=== PATIENT | female | born 1955 | race Caucasian/White ===

== ENCOUNTER 2024-02-10 13:04 | Observation (INO) | payer BC ==
[~2024-02-10] VITALS: Ht 167.6 cm; Wt 78.5 kg
[2024-02-10] MEDS ORDERED: LIDOcaine 1% 30ml preserv. free vial ONE (13:16)
[2024-02-10] MEDS ORDERED: iohexol 350 MG/ML 50ML vial IV ONE (13:16)
[2024-02-10] MEDS ORDERED: midazolam 1 mg/ML 2ml injection ONE (13:16)
[2024-02-10] MEDS ORDERED: fentaNYL/PF 50MCG/1 ML 2ML syringe ONE (13:16)
[2024-02-10] MEDS ORDERED: iohexol 350MG/ML 100ml bottle IV ONE (13:17)
[2024-02-10 13:24] LABS: BASOPHILS # (AUTO) 0.1 X10'3 (0-0.2); BASOPHILS % (AUTO) 1.1 % (0-1); EOSINOPHILS # (AUTO) 0.2 X10'3 (0-0.9); EOSINOPHILS % (AUTO) 3.1 % (0-6); HEMATOCRIT 48.3 % (35.0-45.0); HEMOGLOBIN 16.3 g/dl (12.0-16.0); LYMPHOCYTES # (AUTO) 2.2 X10'3 (1.1-4.8); LYMPHOCYTES % (AUTO) 33.6 % (21-51); MEAN CORPUSCULAR HGB CONC 33.7 g/dL (33.0-36.5); MEAN CORPUSCULAR VOLUME 89.1 FL (78-98); MEAN PLATELET VOLUME 9.6 FL (7.4-10.4); MONOCYTES # (AUTO) 0.5 X10'3 (0-0.9); MONOCYTES % (AUTO) 7.3 % (2-12); NEUTROPHILS # (AUTO) 3.6 X10'3 (1.8-7.7); NEUTROPHILS % (AUTO) 54.9 % (42-75); PLATELET COUNT 162 X10'3 (140-440); RED BLOOD COUNT 5.42 X10'6 (4.20-5.60); RED CELL DISTRIBUTION WIDTH 14.9 % (11.5-14.5); WHITE BLOOD COUNT 6.6 X10'3 (4.5-11.0)
[2024-02-10 13:42] LABS: ALBUMIN 3.5 G/DL (3.4-5.0); ANION GAP 9 (8-16); BLOOD UREA NITROGEN 12 MG/DL (7-18); BUN/CREATININE RATIO 17.1 (10.0-20.0); CALCIUM 8.9 MG/DL (8.5-10.1); CHLORIDE 106 MMOL/L (99-107); GLUCOSE 157 MG/DL (70-104); POTASSIUM 3.5 MMOL/L (3.5-5.1); PRO BRAIN NATRIURETIC PEPTIDE 427 PG/ML (0-125); SODIUM 142 MMOL/L (135-145); TOTAL CARBON DIOXIDE 27.3 MMOL/L (24-32); eCRCL 71 ML/MIN; eGFR 83 ML/MIN
[2024-02-10] MEDS: normal saline 1000ML IV soln IVB ONE (13:56)
[2024-02-10] MEDS: metoprolol tartrate 1mg/ml inj IV ONE ×2 (13:56)
[2024-02-10] MEDS: heparin 10,000 units/1 ML INJ IV ONE (13:58)
[2024-02-10] MEDS ORDERED: heparin 25,000 UNIT/250ml bag 250 ML IV PRN ×2 (14:00→14:04)
[2024-02-10] MEDS: ondansetron/PF 4mg/2ml inj IV ONE (14:03)
[2024-02-10] MEDS: nitroGLYCERIN 0.4mg/hour patch TD ONE (14:03)
[2024-02-10] MEDS: aspirin 325mg tablet PO ONE (14:03)
[2024-02-10] MEDS ORDERED: heparin 10,000 units/1 ML INJ IV PRN (14:20)
[2024-02-10] MEDS: metoprolol succinate 25mg (24-HOUR) SR. Tablet PO SCH (14:33)
[2024-02-10] MEDS: MESSAGE TO NURSING IV ONE (14:34)
[2024-02-10] MEDS ORDERED: METO-477 PO (14:41)
[2024-02-10] MEDS ORDERED: ATOR80TA PO (14:41)
[2024-02-10] MEDS ORDERED: CLOP75TA34 PO (14:41)
[2024-02-10] MEDS ORDERED: LOSA-415 PO (14:41)
[2024-02-10] MEDS ORDERED: potassium Cl 40MEQ/1/2NS 520ml 520 ML IV PRN (14:50)
[2024-02-10] MEDS ORDERED: magnesium sulf-water 4G/100mL 100 ML IV PRN (14:50)
[2024-02-10] MEDS ORDERED: magnesium sulf-water 2g/50mL 50 ML IV PRN (14:50)
[2024-02-10] MEDS ORDERED: magnesium Cl slow-release 64mg tablet PO PRN (14:50)
[2024-02-10] MEDS ORDERED: potassium Cl 20 mEq SR tablet PO PRN (14:50)
[2024-02-10] MEDS ORDERED: acetaminophen 325mg tablet PO PRN (14:50)
[2024-02-10] MEDS ORDERED: ondansetron/PF 4mg/2ml inj IV PRN (14:50)
[2024-02-10] MEDS: PERFLUTREN PROTEIN-A MICROSPHR (Optison) 0.22 MG/ML 3ML VIAL IV ONE (14:50)
[2024-02-10] MEDS: normal saline 1000ml 1,000 ML IV SCH (15:43)
[2024-02-10 16:01] LABS: MAGNESIUM 1.8 MG/DL (1.5-2.4)
[2024-02-10] MEDS: K and/or MAG REPLACEMENT MC SCH (20:00)
[2024-02-10 20:48] VITALS: BP 144/66; PULSE 72; RESP 16; TEMP 96.4; O2SAT 93
[2024-02-10 20:50] VITALS: RESP 16; O2SAT 93
[2024-02-10] MEDS ORDERED: temazepam 15mg capsule PO PRN (21:00)
[2024-02-10] MEDS: heparin, porcine 5000 units/ml vial SQ SCH (21:00)
[2024-02-10] MEDS ORDERED: ASPI-500 PO (22:17)
[2024-02-11 06:00] VITALS: BP 170/91; PULSE 80; RESP 16; TEMP 98.3; O2SAT 92
[2024-02-11 07:19] LABS: BASOPHILS # (AUTO) 0.1 X10'3 (0-0.2); BASOPHILS % (AUTO) 0.8 % (0-1); EOSINOPHILS # (AUTO) 0.2 X10'3 (0-0.9); EOSINOPHILS % (AUTO) 2.1 % (0-6); HEMATOCRIT 42.7 % (35.0-45.0); HEMOGLOBIN 14.2 g/dl (12.0-16.0); LYMPHOCYTES # (AUTO) 2.5 X10'3 (1.1-4.8); LYMPHOCYTES % (AUTO) 31.6 % (21-51); MEAN CORPUSCULAR HEMOGLOBIN 29.8 PG (27.0-31.0); MEAN CORPUSCULAR HGB CONC 33.2 g/dL (33.0-36.5); MEAN CORPUSCULAR VOLUME 89.8 FL (78-98); MEAN PLATELET VOLUME 9.9 FL (7.4-10.4); MONOCYTES # (AUTO) 0.5 X10'3 (0-0.9); MONOCYTES % (AUTO) 6.9 % (2-12); NEUTROPHILS # (AUTO) 4.6 X10'3 (1.8-7.7); NEUTROPHILS % (AUTO) 58.6 % (42-75); PLATELET COUNT 143 X10'3 (140-440); RED BLOOD COUNT 4.76 X10'6 (4.20-5.60); WHITE BLOOD COUNT 7.9 X10'3 (4.5-11.0)
[2024-02-11 07:25] LABS: ANION GAP 7 (8-16); BLOOD UREA NITROGEN 10 MG/DL (7-18); BUN/CREATININE RATIO 20.8 (10.0-20.0); CALCIUM 8.4 MG/DL (8.5-10.1); CHLORIDE 108 MMOL/L (99-107); CREATININE 0.48 MG/DL (0.40-0.90); GLUCOSE 92 MG/DL (70-104); MAGNESIUM 1.8 MG/DL (1.5-2.4); POTASSIUM 3.3 MMOL/L (3.5-5.1); SODIUM 142 MMOL/L (135-145); TOTAL CARBON DIOXIDE 26.9 MMOL/L (24-32); eCRCL 104 ML/MIN; eGFR > 90 ML/MIN
[2024-02-11] MEDS: potassium Cl 20 mEq SR tablet PO PRN (07:39)
[2024-02-11] MEDS: aspirin 81mg, enteric-coated 1 TAB TABLET.DR PO SCH (09:53)
[2024-02-11] MEDS: clopidogrel 75mg tablet PO SCH (09:53)
[2024-02-11] MEDS: losartan 25mg tablet PO SCH (09:53)
[2024-02-11 10:00] VITALS: BP 197/103; PULSE 88; RESP 14; TEMP 98.3; O2SAT 94
[2024-02-11] MEDS ORDERED: NOR5T PO (12:10)
[2024-02-11 12:31] VITALS: BP_SYST 190; PULSE 90
[2024-02-11] MEDS: amLODIPine 5mg tablet PO ONE (12:31)
[2024-02-11] MEDS ORDERED: metoprolol tartrate 50mg tablet PO SCH (20:00)
[2024-02-12] MEDS ORDERED: atorvastatin 20mg tablet PO SCH (08:00)
== END 2024-02-11 14:45 | disposition home or self-care (01) ==
LOC: ER 13:05 → ED HOLD 14:51 → ORTHO 4S 20:10
PROVIDERS: ADMIT Internal Medicine; ATTEND Internal Medicine
DX: R07.89 Other chest pain (principal); I25.10 Atherosclerotic heart disease of native coronary artery without angina pectoris; I10 Essential (primary) hypertension; I25.2 Old myocardial infarction; F17.210 Nicotine dependence, cigarettes, uncomplicated; Z79.899 Other long term (current) drug therapy
CPT/HCPCS: 36415; 71045; 80048; 83735; 83880; 84484; 85025; 85730; 87081; 93005; 93306; 96361; 96372; 96374; 96375; 99291; G0378; J1644; J2250; J2405; J3010; J3490; J7030; Q9967; A6258

== ENCOUNTER 2025-05-21 13:18 | Inpatient (IN) | payer BC, MEDICAID ==
[~2025-05-21] VITALS: Ht 172.7 cm; Wt 74.3 kg
[~2025-05-21 13:18] MED LIST: ASPI-500 PO; ATOR-429 GT; CLOP75TA34 PO; LOSA-415 PO; METO-477 PO; NOR5T PO
[2025-05-21] MEDS: normal saline 500ml IV soln 500 ML IV SCH (14:45)
--- NOTE | 2025-05-21 15:04 | RADIOLOGY REPORT ---
CHEST RADIOGRAPH Indication: SEPSIS Technique: Single frontal view of the chest was obtained COMPARISON: DI CHEST,SINGLE VIEW on DOS: 02/10/24 FINDINGS: Lines and Tubes: None Lungs: Clear Pleura: No effusion. No pneumothorax. Cardiomediastinal contours: Unremarkable Bones: Unremarkable IMPRESSION: 1. No acute disease.
--- NOTE | 2025-05-21 15:18 | ELECTROCARDIOGRAPH REPORT ---
[facility] Test Date: 2025-05-21 Test Time: 15:16:09 Pat Name: SHANTAL TOWNSEND Department: [facility] Patient ID: [id number] Room: ORTHO [facility] Gender: F Compensation Specialist: : [id number] Requested By: MILE JENSEN Order Number: [id number] Reading MD: Dr. Randall Maza Measurements Intervals [place] Rate: 110 P: 60 FL: 167 QRS: 50 QRSD: 109 T: 118 QT: 349 QTc: 473 Interpretive Statements Sinus tachycardia Probable inferior infarct, acute Anterior infarct, old Lateral leads are also involved Electronically Signed On 05-26-2025 7:50:[address] Randall Maza Please click the below link to view image of tracing.
--- NOTE | 2025-05-21 15:40 | Physician Documentation ---
History of Present Illness General Chief Complaint: Sore Throat Stated Complaint: DIFFICULTY SWALLOWING Time Seen by MD: 14:07 Primary Medical Doctor: DR ALON MCBRIDE History of Present Illness Initial Comments 70-year-old female brought to the emergency department by family for evaluation and management of dehydration with likely UTI and failure to thrive. Family member reports that patient has had increased difficulty eating for the last couple of weeks with significant change in the last 48 hours. Has known history of CVA leaving her with with left upper and lower extremity deficits. No reported chest pain, headache, nausea or vomiting. Patient without change in her orientation, speech or right and lower extremity functional use. Patient is a normally seen at [facility] yet had an unpleasant hospital stay and subsequently has presenting to [facility] Emergency Department. She was able to tolerate some yogurt this morning without nausea or vomiting or cough. Yesterday was able to have applesauce with her meds yet no further appetite. Medication Reconciliation Allergies: Coded Allergies: Influenza Virus Vaccines (Unverified Allergy, Unknown, 02/10/24) Scheduled Atorvastatin Calcium* (Lipitor*), 1 TAB PO DAILY, (Reported) Baclofen (Baclofen), 1 TAB PO BID, (Reported) Docusate Sodium (Docusate Sodium), 1 CAP PO Q12H, (Reported) Fluticasone Propionate (Flonase), 2 SPRAYS BOTHNARES DAILY, (Reported) Loratadine (Loratadine), 1 TAB PO DAILY, (Reported) Metoprolol Tartrate (Lopressor*), 1 TAB PO BID, (Reported) Omeprazole (Omeprazole), 1 CAP PO DAILY, (Reported) Valsartan (Valsartan), 1 TAB PO DAILY, (Reported) Discontinued Medications Amlodipine Besylate (Amlodipine Besylate), 1 TAB PO DAILY Discontinued Reason: patient no longer taking Aspirin (Adult Low Dose Aspirin EC), 1 TAB PO DAILY, (Reported) Discontinued Reason: patient no longer taking Clopidogrel Bisulfate (Clopidogrel), 1 TAB PO DAILY, (Reported) Discontinued Reason: patient no longer taking Losartan Potassium* (Cozaar*), 1 TAB PO DAILY, (Reported) Discontinued Reason: patient no longer taking Past Medical History Past Medical History: Hypertension, Myocardial Infarction Review of Systems Constitutional: Denies: fever, chills HENT: Reports: throat pain; Denies: ear pain, nasal discharge RESP: Denies: short of breath, cough GI: Denies: abdominal pain, nausea : Reports: frequency Neuro: Denies: headache, seizures, dizziness, weakness, numbness, tingling Psych: Reports: anxiety Physical Exam Physical Exam Vital Signs: RN Vital Signs have been reviewed: Yes, Temperature: 98.2, Source: Temporal, Heart Rate: 68, Respiratory Rate: 18, BP: 107/64, Pulse Oximetry: 93, Weight: 62.000 Oxygen Flow Rate: 0 General Appearance: alert, WD/WN, mild distress Head: normal inspection Face: normal inspection Pupils/EOM/Fundus: PERRLA Ear: auricle normal Nose: normal inspection Oropharynx: normal inspection, dry muscous membranes; No: red, exudate, white plaques, tonsillar hypertrophy Neck: non-tender Respiratory: no respiratory distress Chest: no accessory muscle use Cardiovascular: normal peripheral pulses Gastrointestinal: non-tender Extremities: no edema, no calf tenderness Neurologic: oriented x4 Motor / Sensory: weak motor strength LUE, weak motor strength LLE Psychiatric: anxiety Skin: normal color Progress Results/Orders Results/Orders Orders - MILE JENSEN PAC Culture Blood (05/21/25 14:44) Chest,Single View (05/21/25 14:44) Straight Cath For Urine Sample (05/21/25 14:44) Page Hospitalist (05/21/25 16:48) Fill Out Med Reconciliation (05/21/25 16:48) Completed Orders - MILE JENSEN PAC Electrocardiogram (05/21/25 14:44) Cbc/Diff (05/21/25 14:44) MG (05/21/25 14:44) Chest,Single View (05/21/25 14:44) Hcg, Ur Ql (05/21/25 14:44) Procalcitonin (05/21/25 14:44) BMP (05/21/25 14:44) Lacticsepsis (05/21/25 14:44) Normal Saline 500ml Iv Soln (Sodium Chlo (05/21/25 14:45) Ua W/Microscopic, Cult If Ind (05/22/25 08:10) Vital Signs 05/21/25 05/21/25 13:37 17:00 Temp 98.2 Pulse 68 87 Resp 18 14 B/P (MAP) 107/64 110/89 (96) Pulse Ox 93 93 O2 Flow Rate 0 0 Laboratory Tests Test 05/21/25 15:57 White Blood Count 5.6 Red Blood Count 5.46 Hemoglobin 16.8 H Hematocrit 50.2 H Mean Corpuscular Volume 91.9 Mean Corpuscular Hemoglobin 30.7 Mean Corpuscular Hemoglobin Concent 33.4 Red Cell Distribution Width 15.5 H Platelet Count 170 Mean Platelet Volume 9.3 Neutrophils (%) (Auto) 76.3 H Lymphocytes (%) (Auto) 14.3 L Monocytes (%) (Auto) 8.4 Eosinophils (%) (Auto) 0.2 Basophils (%) (Auto) 0.8 Neutrophils # (Auto) 4.2 Lymphocytes # (Auto) 0.8 L Monocytes # (Auto) 0.5 Eosinophils # (Auto) 0.0 Basophils # (Auto) 0.0 CBC Comment Sodium Level 143 Potassium Level 3.4 L Chloride Level 100 Carbon Dioxide Level 31.0 Anion Gap 12 Blood Urea Nitrogen 26 H Creatinine 0.70 Estimated GFR/1.73 m2 82 BUN/Creatinine Ratio 37.1 H Glucose Level 87 Lactic Acid Level 1.3 Calcium Level 9.2 Magnesium Level 1.6 Albumin 2.9 L Procalcitonin 0.05 Chemistry Comments Microbiology Date/Time Source Procedure Growth Status 05/21/25 16:48 Blood Arm Right Blood Culture - Preliminary NEGATIVE (LESS THAN 24 HOURS) Resulted Medical Decision Making Additional information obtaine: family Findings 70-year-old elderly female with progressive weakness that may be infectious in etiology with presentation of failure to thrive. Emergency department we will include laboratory screening chest x-ray screening I would EKG. Patient any further workup and management. Decision time to admit was upon patient's beds johan evaluation. She is resting comfortably pending re-evaluation and hospitalist consultation. Patient may benefit from EGD, ENT evaluation speech pathology and hydration along with addressing underlying cause. We will hold on antibiotic therapy until urine is resulted. Sepsis initiation upon evaluated the patient the bedside. Patient remained stable and Normotensive. No resu scitated measures needed. Labs are indicative of dehydration general likely contributory to general weakness with or without UTI. Differential Diagnosis Differential diagnosis likely that of acute infectious etiology such as UTI with failure to thrive, failure to thrive secondary to chronic disease. Low suspicion for acute coronary syndrome and/or acute CVA. Do not suspect acute retropharyngeal etiologies such as tracheitis, epiglottitis or peritonsillar abscess. Sepsis labs placed upon presentation that patient's bedside. Gentle fluid hydration until further results obtained of screening labs. Chest x-ray without infiltrates, effusions or pneumothoraces. EKG normal rate and rhythm with evidence of old injury. Departure Disposition: ADMITTED INPATIENT Admitted to Inpatient Unit: to hospitalist Admission Level of Care: Med/Surg Impression: Primary Impression: General weakness Additional Impressions: Dysphagia Qualified Codes: R13.10 - Dysphagia, unspecified Failure to thrive in adult Referrals: NO PRIMARY CARE PROVIDER (PCP) Signature Scribe Signature: . Attestation: . MILE JENSEN PAC May 21, 2025 15:40
[2025-05-21 16:30] LABS: CREATININE 0.70 MG/DL (0.40-0.90); MEAN PLATELET VOLUME 9.3 FL (7.4-10.4); RED CELL DISTRIBUTION WIDTH 15.5 % (11.5-14.5); TOTAL CARBON DIOXIDE 31.0 MMOL/L (24-32); eCRCL 72 ML/MIN; eGFR 82 ML/MIN
[2025-05-21] MEDS ORDERED: magnesium sulf-water 2g/50mL 50 ML IV PRN (18:20)
[2025-05-21] MEDS ORDERED: morphine 4 MG/ML inj SYRINge IV PRN (18:20)
[2025-05-21] MEDS ORDERED: mag hydrox/Alum hydrox/simeth 30ml oral suspension PO PRN (18:20)
[2025-05-21] MEDS ORDERED: ondansetron/PF 4mg/2ml inj IV PRN (18:20)
[2025-05-21] MEDS ORDERED: potassium Cl 20 mEq SR tablet PO PRN ×2 (18:20)
[2025-05-21] MEDS ORDERED: magnesium hydroxide 30ml (MOM) UD suspension PO PRN (18:20)
[2025-05-21] MEDS ORDERED: HYDROcodone/acetaminophen 10/325mg tab PO PRN (18:20)
[2025-05-21] MEDS ORDERED: magnesium sulf-water 4G/100mL 100 ML IV PRN (18:20)
[2025-05-21] MEDS ORDERED: magnesium Cl slow-release 64mg tablet PO PRN (18:20)
[2025-05-21] MEDS: PERFLUTREN PROTEIN-A MICROSPHR (Optison) 0.22 MG/ML 3ML VIAL IV ONE (18:34)
--- NOTE | 2025-05-21 18:45 | HISTORY AND PHYSICAL-Residence ---
History & Physical Providers to CC Resident Creating Document: DAVID HUSSEIN, GUICHO ~ History of Present Illness Primary Medical Doctor: DR ALON MCBRIDE Reason for Admit\Complaint: Acute deconditioning, possible UTI, failure to thrive History of Present Illness 70-year-old female presented to the ER with past medical history of hypertension, CVA with left hemiparesis, coronary artery disease status post stenting presented to the ER by family for evaluation and management of dehydration with likely UTI and failure to thrive, ambulation difficulty. She reported loss of appetite, dysphagia, vomiting for the past couple of days. that patient has had increased difficulty eating for the last couple of weeks with significant change in the last 48 hours. Has known history of CVA leaving her with with left upper and lower extremity deficits. She denied chest pain, headache, nausea, vomiting , no recent change in orientation, speech, weakness of limbs. Patient is a normally seen at [facility] yet had an unpleasant hospital stay and subsequently has presenting to [facility] Emergency Department. She was able to tolerate some yogurt this morning without nausea or vomiting or cough. Allergies: Coded Allergies: Influenza Virus Vaccines (Unverified Allergy, Unknown, 02/10/24) Home Medications Home Medications Active Amlodipine Besylate 5 Mg Tablet 1 Tab PO DAILY 30 Days Reported Adult Low Dose Aspirin EC (Aspirin) 81 Mg Tablet. 1 Tab PO DAILY Clopidogrel (Clopidogrel Bisulfate) 75 Mg Tablet 1 Tab PO DAILY 30 Days Do not stop medication unless instructed by prescriber. Cozaar* (Losartan Potassium) 25 Mg Tablet 1 Tab PO DAILY 30 Days Lipitor* (Atorvastatin Calcium) 80 Mg Tablet 1 Tab PO DAILY 30 Days Lopressor* (Metoprolol Tartrate) 100 Mg Tab 1 Tab PO BID Past Medical History Past Medical History Hypertension Myocardial infarction Past Surgical History Surgical History Comment Cholecystectomy CAD with stent placement Family History Family History: Patient reports no known family medical history. Past Social History Social History Comment Smokes 5 cigarettes a day Denied alcohol, drug intake Smoking: Cigarettes, Less than 1 pack/day Alcohol Use: None Drug Use: None ROS All Other Systems: Reviewed and Negative ROS Reviewed in full and negative except positive pertinent as in HPI Exam Vitals: Vital Signs Date Time Temp Pulse Resp B/P (MAP) Pulse Ox O2 Delivery O2 Flow Rate FiO2 05/21/25 17:00 87 14 110/89 (96) 93 0 05/21/25 13:37 98.2 General: General: Alert, Awake, oriented to time place person. Not in acute distress HEENT: Normocephalic , atraumatic pupils round reactive to light and accommodation, extraocular movements intact, sclera anicteric, conjunctiva pinkish, moist oral mucosa, no rash or ulcers. Neck: Supple, no JVD, trachea midline, no lymphadenopathy. Chest: Clear to auscultation, no wheezes crackles or rhonchi. Cardiovascular: Regular rate rhythm. Ejection systolic murmur 2-3/6 on aortic area and pulmonary area. No rub/gallop Abdomen: Soft nontender, no organomegaly. No rebound tenderness, no guarding no rigidity Extremities: No cyanosis, clubbing or edema. Central Nervous System: Higher mental functions: Intact Motor system: Tone is normal on right upper extremity and lower extremity. Hypotonia in left upper extremity lower extremity. Power is intact on right side and reduced on left side. Reflexes plantars are extensor on the left side and flexor on right side. Deep tendon reflexes are intact Sensory system: Intact Cerebellum: Intact Meningeal signs: No Musculoskeletal: No joint swelling or deformities noted. Skin: No rash or ulcers noted. Diagnostic Data Last Recorded Lab Results: 05/21/25 1557 05/21/25 1557 Advance Care Planning Advanced Care plannin - 30 Minutes Additional Plan Failure to thrive Acute deconditioning secondary to pre-existing CVA and possible UTI Dysphagia Ambulation difficulty Vitals are stable. CBC, Procalcitonin, lactic acid is normal. Started on ceftriaxone for presumptive UTI as urinalysis is still pending On IV normal saline at the rate of 100 mL/hour PT is ordered and follow up with his recommendation. Consult GI after swallow test Hypertension On home medications of Losartan 25 mg p.o. daily, metoprolol 100 mg p.o. daily, amlodipine 5 mg p.o. daily and we will continue after medication reconciliation. Blood pressure is stable Coronary artery disease CVA with a left hemiplegia We will continue aspirin 81 mg, clopidogrel 75 mg p.o. daily, atorvastatin 80 mg p.o. daily Nicotine use A nicotine patch if needed Mild protein malnutrition Hypoalbuminemia Serum albumin 2.9 On NPO now Code: Full code Diet: NPO till swallow test and then heart healthy diet PT: Ordered Prognosis: Guarded [facility] resident, PGY 2 Date of Service: May 21, 2025 Billing Provider: MANJIT SMALL MD Common Visit Codes: 72201-TZWZEAO INP/OBS CARE (HIGH) Secondary Visit Codes: 97734-GLHFLTYQ CARE PLAN 30 MINUTES DAVID HUSSEIN, RES May 21, 2025 18:45 MANJIT SMALL MD Jun 05, 2025 07:27
[2025-05-21] MEDS: normal saline 1000ml 1,000 ML IV SCH (18:52)
[2025-05-21] MEDS: CefTRIAXone/D5W-Rocephin 1gm 50 ML IV ONE (18:52)
[2025-05-21] MEDS: K and/or MAG REPLACEMENT MC SCH (20:00)
[2025-05-21] MEDS: docusate sod 100mg capsule PO SCH (20:00)
[2025-05-21] MEDS: fluticasone nasal spray 16GM bottle NS SCH (20:37)
[2025-05-21] MEDS: potassium Cl 40MEQ/1/2NS 520ml 520 ML IV PRN (20:38)
[2025-05-21] MEDS ORDERED: LORA10TA7 GT (22:41)
[2025-05-21] MEDS ORDERED: BACL10TA2 GT (22:42)
[2025-05-21] MEDS ORDERED: DOCU100C38 PO (22:44)
[2025-05-21] MEDS ORDERED: OMEP20CA15 GT (22:45)
[2025-05-21 23:04] VITALS: BP 122/56; PULSE 100; RESP 18; TEMP 97.9; O2SAT 95
[2025-05-22] MEDS: morphine 4 MG/ML inj SYRINge IV PRN (00:08)
[2025-05-22] MEDS ORDERED: FLUT16SP2 BOTHNARES (00:29)
[2025-05-22] MEDS ORDERED: VALS40TA11 PO (00:29)
[2025-05-22 05:32] LABS: MEAN PLATELET VOLUME 9.8 FL (7.4-10.4); RED CELL DISTRIBUTION WIDTH 15.4 % (11.5-14.5)
[2025-05-22 06:00] VITALS: BP 138/57; PULSE 108; RESP 14; TEMP 96.6; O2SAT 95
[2025-05-22] MEDS: CefTRIAXone/D5W-Rocephin 1gm 50 ML IV SCH (08:28)
[2025-05-22 09:22] LABS: URINE HCG NEGATIVE (NEG)
[2025-05-22 09:23] LABS: CREATININE 0.41 MG/DL (0.40-0.90); TOTAL CARBON DIOXIDE 27.4 MMOL/L (24-32); eCRCL 123 ML/MIN; eGFR > 90 ML/MIN
[2025-05-22 09:28] LABS: UA COLLECTION TYPE NON-SPECIFIED
[2025-05-22 09:29] LABS: OCCULT BLOOD,URINE MODERATE (Neg)
[2025-05-22 09:30] LABS: LEUKOCYTE ESTERASE ,URINE MODERATE (Neg); NITRITES, URINE POSITIVE (Neg)
[2025-05-22 09:33] LABS: RENAL CELLS, URINE FEW /HPF; SQUAMOUS EPITHELIAL CELL,UR FEW /LPF (FEW)
[2025-05-22 10:00] VITALS: BP 135/62; PULSE 109; RESP 18; TEMP 97.7; O2SAT 96
[2025-05-22 10:03] VITALS: RESP 16; O2SAT 96
--- NOTE | 2025-05-22 16:06 | CARDIOLOGY REPORT ---
APPROVED REPORT EXAM: Comprehensive 2D, Doppler, and color-flow Echocardiogram. Patient Location: [facility] Heart Rate: 109 bpm Rhythm: Tachycardia Indications CVA/TIA HTN 2/6 SYSTOLIC EJECTION MURMUR ARM REST BUILDER: Shahid UMANA MD PRIOR ECHOCARDIOGRAM: 02/10/2024 [facility] LVEF 60%; m CLVH; m AV SCLEROSIS; m MAC; 2D Dimensions RVDd 2.9 cm IVSd 1.1 (0.7-1.1cm) LVDd 3.5 cm PWd 1.3 (0.7-1.1cm) IVSs 1.4 (0.8-1.2cm) LVDs 2.4 (2.5-4.0cm) PWs 1.6 (0.8-1.2cm) LVOT Diameter 1.86 (1.8-2.4cm) LVEF(%) 61.3 (>50%) FS (%) 32.1 % SV 31.1 ml CO 3.4 L/min M-Mode Dimensions Left Atrium(MM) 3.55 (2.5-4.0cm) Aortic Root 3.11 (2.2-3.7cm) Aortic Cusp Exc 1.65 (1.5-2.0cm) Aortic Valve AoV Peak Dougie. 164.2 cm/s AoV VTI 23.5 cm AO Peak GR. 10.8 mmHg AO Mean GR. 6 mmHg LVOT VTI 18.23 cm LVOT Peak Dougie. 126.0 cm/s CLAUDIA(VTI)/BSA 2.11 cm2/m2 CLAUDIA (VTI) 2.11 cm2 AV DI 0.77 % Mitral Valve MV E Velocity 70.8 cm/s MV Peak Gr. 11 mmHg MV A Velocity 145.6 cm/s MV PHT 32 ms E/A Ratio 0.5 MVA (PHT) 6.88 cm2 MV VMax 165.0 cm/s LEFT VENTRICLE Normal LV size and function. Mild concentric hypertrophy. Overall LVEF is 60%. RIGHT VENTRICLE RV is normal size and function. ATRIA The left atrium size is normal. The right atrium size is normal. AORTIC VALVE Trileaflet AV appears mildly sclerotic without stenosis. No insufficiency. MITRAL VALVE Mild mitral annular calcification without stenosis. Trace insufficiency. TRICUSPID VALVE TV appears structurally normal without regurgitation. PULMONIC VALVE Pulmonic valve is not well visualized. GREAT VESSELS The aortic root is normal in size. The IVC is normal in size and collapses >50% with inspiration. PERICARDIUM Normal pericardium. No effusion. Other Information Study Quality: Fair Technically limited study due to Conclusion Overall LVEF is 60%. Normal LV size and function. Mild concentric hypertrophy. RV is normal size and function. Trileaflet AV appears mildly sclerotic without stenosis. No insufficiency. Mild mitral annular calcification without stenosis. Trace insufficiency. TV appears structurally normal without regurgitation. Normal pericardium. No effusion.
[2025-05-22] MEDS ORDERED: magnesium hydroxide 30ml (MOM) UD suspension CORPAK PRN (16:45)
[2025-05-22] MEDS ORDERED: HYDROcodone/acetaminophen 7.5MG/325MG per 15ml UD CUP CORPAK PRN (16:46)
[2025-05-22] MEDS ORDERED: POTASSIUM CHLORIDE 20 MEQ/15 ML oral solution CORPAK PRN ×2 (16:47)
[2025-05-22] MEDS ORDERED: mag hydrox/Alum hydrox/simeth 30ml oral suspension CORPAK PRN (16:48)
[2025-05-22] MEDS ORDERED: acetaminophen 325mg/10.15ml oral unit dose solution CORPAK PRN ×2 (16:48→16:49)
--- NOTE | 2025-05-22 17:39 | PROGRESS NOTE- Residence ---
Progress Note - Resident Providers to CC Resident Creating Document: ROBERTO WILKS RES ~ Antibiotic Timeout Antibiotic Ordered?: Yes Subjective Patient was seen and examined at bedside, she claims of having a stroke in October 2024, was at [facility] for a few weeks. Patient had an NG-tube placed at [facility] which was removed following speech therapy evaluation. Patient was discharged on follow up with speech therapy at home. However due to insurance issues patient claims she was recommended outpatient speech therapy. However, patient had dysphagia since January 2025 which has been progressive with a associated pain extending from right post auricular area to jaw. Objective Vital Signs Date Time Temp Pulse Resp B/P (MAP) Pulse Ox O2 Delivery O2 Flow Rate FiO2 05/22/25 10:10 Room Air 0.0 05/22/25 10:03 16 96 05/22/25 10:00 97.7 109 135/62 (86) Result Diagram: 05/22/25 0414 05/22/25 0828 General: Alert, Awake, oriented to time place person. Not in acute distress HEENT: Normocephalic , atraumatic pupils round reactive to light and accommodation, extraocular movements intact, sclera anicteric, conjunctiva pinkish, moist oral mucosa, no rash or ulcers. Neck: Supple, no JVD, trachea midline, no lymphadenopathy. Chest: Clear to auscultation, no wheezes crackles or rhonchi. Cardiovascular: Regular rate rhythm. Ejection systolic murmur 2-3/6 on aortic area and pulmonary area. No rub/gallop Abdomen: Soft nontender, no organomegaly. No rebound tenderness, no guarding no rigidity Extremities: No cyanosis, clubbing or edema. Central Nervous System: Higher mental functions: Intact Motor system: Tone is normal on right upper extremity and lower extremity. Hypotonia in left upper extremity lower extremity. Power is intact on right side and reduced on left side. Reflexes plantars are extensor on the left side and flexor on right side. Deep tendon reflexes are intact Sensory system: Intact Cerebellum: Intact Meningeal signs: No Musculoskeletal: No joint swelling or deformities noted. Skin: No rash or ulcers noted. Advance Care Planning Advanced Care plannin - 30 Minutes Plan Plan 1. Failure to thrive / Acute deconditioning Likely multifactorial, secondary to chronic neurologic deficits from prior CVA, poor oral intake due to dysphagia, and possible infection Currently appears malnourished with hypoalbuminemia (albumin 2.9 g/dL) Plan: Continue IV fluids (Normal saline at 100 mL/hr) for hydration Nutrition consult for nutritional optimization Continue close monitoring of intake/output and daily weights Clear liquid diet per speech therapy. PT and OT evaluation for mobility and strengthening Speech therapy recommended clear liquid diet, NG tube for enteral nutrition versus PEG tube Discussion regarding long-term feeding options (NGT vs PEG) with patient and family pending 2. Dysphagia- oropharyngeal dysphagia secondary to prior stroke Chronic but worsening since January, likely secondary to sequelae of prior CVA. Now with poor tolerance to solids; able to take only small amounts of yogurt. Plan: Maintain clear liquids per speech therapy GI consult for swallow evaluation and possible G-tube after discussion with the patient Continue aspiration precautions and upright positioning 3. Urinary tract infection (UTI) UA positive; urine culture pending Procalcitonin and lactic acid normal, no systemic inflammatory response Plan: Continue ceftriaxone (Rocephin) empirically pending culture results Adjust antibiotics based on culture and sensitivity Monitor temperature, WBC, and clinical response Encourage hydration 4. 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 Currently contributing to immobility and deconditioning. Plan: Continue aspirin 81 mg daily, clopidogrel 75 mg daily, and atorvastatin 80 mg daily PT and OT to assist with mobility and prevent contractures Fall precautions 5. Coronary artery disease s/p stenting Stable, no acute cardiac symptoms Plan: Continue aspirin, clopidogrel, and atorvastatin ( but pt iscurrently NPO) Monitor for chest pain or dyspnea Continue home antihypertensive medications 6. Hypertension Blood pressure stable on current regimen Plan: Continue losartan 25 mg daily, metoprolol 100 mg daily, and amlodipine 5 mg daily Monitor blood pressure and adjust as needed 7. Mild protein-calorie malnutrition / Hypoalbuminemia (albumin 2.9 g/dL) Secondary to poor intake and dysphagia Plan: Nutrition consult Replete electrolytes as needed Monitor albumin and prealbumin levels 8. Nicotine use Continue nicotine patch as needed 9. Social and Disposition Lives with , granddaughter, and brother. Discussed at length with patient; she currently declines NGT placement and prefers to discuss with PCP first. Follow-up with PCP, speech therapy, and possibly GI. Code Status: I spent a total of 17 minutes on reviewing various resuscitative measures with the patient at the time of admission. The patient has decided on a full code status. Nutrition: Clear liquid diet PT: Ordered Prognosis: Guarded Roberto Wilks MD Internal Medicine Resident, PGY-2 Date of Service: May 22, 2025 Billing Provider: MANJIT SMALL MD Common Visit Codes: 43519-[id number] INP/OBS CARE(HIGH) ROBERTO WILKS, RES May 22, 2025 17:39 MANJIT SMALL MD Jun 05, 2025 07:27
[2025-05-22 18:00] VITALS: BP 138/63; PULSE 108; RESP 16; TEMP 97.8; O2SAT 96
[2025-05-22] MEDS: docusate sodium 100mg/10ml UD cup CORPAK SCH (19:36)
[2025-05-22 22:00] VITALS: BP 144/69; PULSE 66; RESP 14; TEMP 96.8; O2SAT 94
[2025-05-23 06:00] VITALS: BP 135/74; PULSE 67; RESP 14; TEMP 97.6; O2SAT 95
[2025-05-23 06:07] LABS: MEAN PLATELET VOLUME 8.8 FL (7.4-10.4); RED CELL DISTRIBUTION WIDTH 15.5 % (11.5-14.5)
[2025-05-23 06:18] LABS: CREATININE 0.30 MG/DL (0.40-0.90); TOTAL CARBON DIOXIDE 26.1 MMOL/L (24-32); eCRCL 168 ML/MIN; eGFR > 90 ML/MIN
[2025-05-23] MEDS ORDERED: Potassium Cl inj 40 MEQ in sodium chloride 0.45% 500ml 500 ML IV ONE (07:15)
[2025-05-23 08:20] VITALS: BP 160/71; PULSE 86
[2025-05-23] MEDS: lansoprazole 15mg solutab CORPAK SCH (08:21)
[2025-05-23] MEDS: potassium Cl 40MEQ/1/2NS 520ml 520 ML IV ONE (08:42)
[2025-05-23 10:00] VITALS: BP 134/78; PULSE 67; RESP 14; TEMP 97.3; O2SAT 100
[2025-05-23] MEDS ORDERED: Potassium Cl inj 40 MEQ in normal saline 500ml IV soln 500 ML IV ONE (12:20)
[2025-05-23] MEDS ORDERED: potassium Cl 40MEQ/1/2NS 520ml 520 ML IV ONE (12:44)
[2025-05-23] MEDS ORDERED: potassium Cl 20mEq/100mL bag 100 ML IV SCH (13:05)
[2025-05-23] MEDS: POTASSIUM CHLORIDE 20 MEQ/15 ML oral solution PO ONE ×2 (14:11→20:30)
[2025-05-23] MEDS ORDERED: acetaminophen 325mg/10.15ml oral unit dose solution PO PRN (15:15)
[2025-05-23] MEDS ORDERED: magnesium hydroxide 30ml (MOM) UD suspension PO PRN (15:15)
[2025-05-23] MEDS ORDERED: mag hydrox/Alum hydrox/simeth 30ml oral suspension PO PRN (15:15)
[2025-05-23] MEDS ORDERED: HYDROcodone/acetaminophen 7.5MG/325MG per 15ml UD CUP PO PRN (15:15)
[2025-05-23] MEDS ORDERED: POTASSIUM CHLORIDE 20 MEQ/15 ML oral solution PO PRN (15:15)
[2025-05-23] MEDS: magnesium sulf-water 4G/100mL 100 ML IV ONE (15:25)
--- NOTE | 2025-05-23 15:31 | PROGRESS NOTE- Residence ---
Progress Note - Resident Providers to CC Resident Creating Document: ROBERTO WILKS RES ~ Antibiotic Timeout Antibiotic Ordered?: No Subjective Patient was seen and examined at bedside, she tolerated p.o. medications over the past 24 hours. She denied having gagging reflex with p.o. medications. She also tolerated clear liquid diet and yogurt today in a.m.. Speech therapy evaluated and recommended advancing to pureed thick diet. Hence discussion regarding long-term feeding options (G-tube placement) is currently on hold. Objective Vital Signs Date Time Temp Pulse Resp B/P (MAP) Pulse Ox O2 Delivery O2 Flow Rate FiO2 05/23/25 08:29 86 05/23/25 08:20 160/71 (100) 05/23/25 08:00 Room Air 05/23/25 06:00 97.6 14 95 05/22/25 10:10 0.0 Result Diagram: 05/23/25 0541 05/23/25 0541 General:Alert, Awake, oriented to time place person. Not in acute distress HEENT:Normocephalic , atraumatic pupils round reactive to light and accommodation, extraocular movements intact, sclera anicteric, conjunctiva pinkish, moist oral mucosa, no rash or ulcers. Neck:Supple, no JVD, trachea midline, no lymphadenopathy. Chest:Clear to auscultation, no wheezes crackles or rhonchi. Cardiovascular:Regular rate rhythm. No murmus all over the precordium. No rub/gallop Abdomen:Soft nontender, no organomegaly. No rebound tenderness, no guarding no rigidity Extremities:No cyanosis, clubbing or edema. Central Nervous System: Higher mental functions: Intact Motor system: Tone is normal on right upper extremity and lower extremity. Hypotonia in left upper extremity lower extremity. Power is intact on right side and reduced on left side. Reflexes plantars are extensor on the left side and flexor on right side. Deep tendon reflexes are intact Sensory system: Intact Cerebellum: Intact Meningeal signs: No Musculoskeletal: No joint swelling or deformities noted. Skin:No rash or ulcers noted. Advance Care Planning Advanced Care plannin - 30 Minutes Assessment Assessment Guy is a 70 year old female with recent history of stroke in October 2024, was at [facility] for a few weeks. Patient had an NG-tube placed at [facility] which was removed following speech therapy evaluation. Patient was discharged on follow up with speech therapy at home. However due to insurance issues patient claims she was recommended outpatient speech therapy. Patient had dysphagia since January 2025 which has been progressive with a associated pain extending from right post auricular area to jaw. Plan Plan 1. Failure to thrive / Acute deconditioning Likely multifactorial, secondary to chronic neurologic deficits from prior CVA, poor oral intake due to dysphagia, and possible infection Currently appears malnourished with hypoalbuminemia (albumin 2.9 g/dL) Plan: Continue IV fluids (Normal saline at 100 mL/hr) for hydration Nutrition consult for nutritional optimization Continue close monitoring of intake/output and daily weights PT and OT evaluation for mobility and strengthening Initially, speech therapy recommended clear liquid diet on 05/22; speech therapy re-evaluated on 05/23 and recommended puree textures and thin liquids Hence discussion regarding long-term feeding options (NGT vs PEG) with patient and family is currently on hold 2. Dysphagia- oropharyngeal dysphagia secondary to prior stroke Chronic but worsening since January, likely secondary to sequelae of prior CVA. Now with poor tolerance to solids; able to take only small amounts of yogurt Plan: Initially, speech therapy recommended clear liquid diet on 05/22; speech therapy re-evaluated on 05/23 and recommended puree textures and thin liquids GI consult for swallow evaluation and possible G-tube currently on hold Continue aspiration precautions and upright positioning 3. Urinary tract infection (UTI) UA positive; urine culture negative until today Procalcitonin and lactic acid normal, no systemic inflammatory response Plan: Continue ceftriaxone (Rocephin) empirically; urine cultures negative until now Adjust antibiotics based on culture and sensitivity Monitor temperature, WBC, and clinical response Encourage hydration 4. 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 Currently contributing to immobility and deconditioning. Plan: Continue aspirin 81 mg daily, and atorvastatin 80 mg daily PT and OT to assist with mobility and prevent contractures Fall precautions 5. Coronary artery disease s/p stenting Stable, no acute cardiac symptoms Plan: Continue aspirin, and atorvastatin Monitor for chest pain or dyspnea Continue home antihypertensive medications 6. Hypertension Blood pressure stable on current regimen Plan: Continue valsartan 40 mg daily, metoprolol tartate 100 mg Bid Monitor blood pressure and adjust as needed 7. Mild protein-calorie malnutrition / Hypoalbuminemia (albumin 2.9 g/dL) Moderate Malnutrition Secondary to poor intake and dysphagia Plan: Nutrition consult Replete electrolytes as needed Monitor albumin and prealbumin levels 8. Nicotine use Continue nicotine patch as needed 9. Social and Disposition Lives with , granddaughter, and brother. Discussed at length with patient; she currently declines NGT and G tube placement . Speech therapy, daily Code Status: Full code Nutrition: Pureed diet PT: Ordered Prognosis: Guarded Had a deep conversation with Patient and patient's Jeremiah, explained in detail regarding the possible need for G-tube placement if patient fails speech therapy evaluation on a daily basis. Roberto Wilks MD Internal Medicine Resident, PGY-2 Date of Service: May 23, 2025 Billing Provider: MANJIT SMALL MD Common Visit Codes: [id number] INP/OBS CARE(HIGH) ROBERTO WILKS, RES May 23, 2025 15:31 MANJIT SMALL MD Jun 05, 2025 07:27
[2025-05-23 18:00] VITALS: BP 116/64; PULSE 71; RESP 16; TEMP 96.9; O2SAT 95
[2025-05-23] MEDS: docusate sodium 100mg/10ml UD cup PO SCH (20:00)
[2025-05-23 22:00] VITALS: BP 125/64; PULSE 57; RESP 14; TEMP 97.1; O2SAT 96
[2025-05-24 05:25] LABS: MEAN PLATELET VOLUME 9.1 FL (7.4-10.4); RED CELL DISTRIBUTION WIDTH 15.6 % (11.5-14.5)
[2025-05-24 06:00] VITALS: BP 137/71; PULSE 62; RESP 14; TEMP 96.2; O2SAT 94
[2025-05-24 06:00] LABS: CREATININE 0.30 MG/DL (0.40-0.90); TOTAL CARBON DIOXIDE 26.0 MMOL/L (24-32); eCRCL 174 ML/MIN; eGFR > 90 ML/MIN
[2025-05-24] MEDS: POTASSIUM CHLORIDE 20 MEQ/15 ML oral solution PO PRN (07:58)
[2025-05-24] MEDS: lansoprazole 15mg solutab PO SCH (07:58)
[2025-05-24 10:30] VITALS: BP 107/51; PULSE 50; RESP 12; TEMP 97.6; O2SAT 96
[2025-05-24] MEDS ORDERED: CEFD300C3 PO (13:41)
[2025-05-24] MEDS ORDERED: LACT1CAP26 PO (13:41)
--- NOTE | 2025-05-24 15:51 | DISCHARGE SUMMARY-Residence ---
Discharge Summary Providers to Resident Creating Document: ROBERTO BRUMFIELD, RES ~ Discharge Summary Admission Diagnosis: ACUTE DECONDITIONING, AMBULATION DIFFICULTY UTI, Hospital Course DATE OF ADMISSION: 05/21/2025 DATE OF DISCHARGE: 05/24/25 Discharge Diagnosis\Comment: 1. Failure to thrive / Acute deconditioning 2. Oropharyngeal Dysphagia secondary to prior stroke Chronic but worsening since January, likely secondary to sequelae of prior CVA 3. Urinary tract infection (UTI) 4. History of Cerebrovascular Accident with left hemiparesis 5. Coronary artery disease s/p stenting 6. Hypertension 7. Mild protein-calorie malnutrition / Hypoalbuminemia (albumin 2.9 g/dL) Moderate Malnutrition 8. Nicotine use 9. Social and Disposition Operations\Procedures: None Consultants: None Complications: None Condition on DC: Stable New Medications: Cefdinir* (Cefdinir*) 300 Mg Capsule 1 CAP PO Q12H for 5 Days, #10 CAP Lactobacillus Rhamnosus (Culturelle) 10 Billion Cell Capsule 1 CAP PO DAILY for 30 Days, #30 CAP 0 Refills Continued Medications: Atorvastatin Calcium* (Lipitor*) 80 Mg Tablet 1 TAB PO DAILY for 30 Days, #30 TAB Baclofen (Baclofen) 10 Mg Tablet 1 TAB PO BID for 30 Days, #90 TAB 0 Refills Docusate Sodium (Docusate Sodium) 100 Mg Capsule 1 CAP PO Q12H for constipation for 7 Days, #14 CAP 0 Refills Fluticasone Propionate (Flonase) 16 Gm [place].susp 2 SPRAYS BOTHNARES DAILY for 30 Days, #16 GM Loratadine (Loratadine) 10 Mg Tablet 1 TAB PO DAILY for allergy symptoms for 30 Days, #30 TAB 0 Refills Metoprolol Tartrate (Lopressor*) 100 Mg Tab 1 TAB PO BID, #100 TAB 3 Refills Omeprazole (Omeprazole) 20 Mg Capsule.dr 1 CAP PO DAILY for 30 Days, #30 CAP 0 Refills Valsartan (Valsartan) 40 Mg Tablet 1 TAB PO DAILY for 30 Days, #30 TAB 0 Refills Discharge Summary: Hospital Ciurse: A 70-year-old female with a history of cerebrovascular accident (CVA) in October 2024 and residual left-sided weakness was admitted for evaluation of worsening dysphagia and poor oral intake, leading to acute deconditioning and failure to thrive. The patient had previously been hospitalized at [facility], where a nasogastric tube (NGT) was placed for feeding and later removed following improvement in swallowing per speech therapy evaluation. Since January 2025, however, she has experienced progressive difficulty swallowing with associated pain radiating from the right postauricular area to the jaw, resulting in markedly reduced oral intake and significant weight loss. On admission, the patient appeared malnourished and weak, with laboratory findings showing hypoalbuminemia (albumin 2.9 g/dL), consistent with moderate protein-calorie malnutrition. She was started on intravenous fluids for hydration, and nutrition consultation was obtained for dietary optimization. Speech therapy initially recommended a clear liquid diet (05/22), and upon reevaluation on 05/23, advanced her to a pureed diet with thin liquids. She tolerated this regimen well without overt aspiration events. Gastroenterology was consulted to discuss possible long-term feeding options, including percutaneous endoscopic gastrostomy placement; however, this decision was deferred after discussion with the patient and her , as she wished to continue attempting oral intake. A urinary tract infection was also suspected based on urinalysis findings; however, urine cultures remained negative. Empiric ceftriaxone (Rocephin) was continued initially, and antibiotics were later discontinued once the culture confirmed no growth and the patient remained afebrile with stable white blood cell counts. Her hypertension and coronary artery disease (status post stent placement) remained stable throughout hospitalization. She continued aspirin 81 mg daily, atorvastatin 80 mg daily, metoprolol tartrate 100 mg twice daily, and valsartan 40 mg daily with good blood pressure control. Her chronic left hemiparesis from prior stroke contributed to limited mobility, and both physical and occupational therapy were consulted to assist with strengthening, transfer training, and fall prevention. After discussions with the patient, her , and the care team, the patient opted to defer feeding tube placement and continue with a pureed diet under close monitoring by speech therapy. She will continue outpatient follow-up with speech therapy and physical therapy at home. Patient was discharged home with assistance from family, given that she is wheelchair-bound at baseline. Her condition was stable at discharge, and her prognosis remains guarded. Imaging: CXR: No acute disease. Echocardiogram: Overall LVEF is 60%. Normal LV size and function. Mild concentric hypertrophy. RV is normal size and function. Trileaflet AV appears mildly sclerotic without stenosis. No insufficiency. Mild mitral annular calcification without stenosis. Trace insufficiency. TV appears structurally normal without regurgitation. Normal pericardium. No effusion. Physical examination today: General:Alert, Awake, oriented to time place person. Not in acute distress HEENT:Normocephalic , atraumatic pupils round reactive to light and a ccommodation, extraocular movements intact, sclera anicteric, conjunctiva pinkish, moist oral mucosa, no rash or ulcers. Neck:Supple, no JVD, trachea midline, no lymphadenopathy. Chest:Clear to auscultation, no wheezes crackles or rhonchi. Cardiovascular:Regular rate rhythm. No murmus all over the precordium. No rub/gallop Abdomen:Soft nontender, no organomegaly. No rebound tenderness, no guarding no rigidity Extremities:No cyanosis, clubbing or edema. Central Nervous System: Higher mental functions: Intact Motor system: Tone is normal on right upper extremity and lower extremity. Hypotonia in left upper extremity lower extremity. Power is intact on right side and reduced on left side. Reflexes plantars are extensor on the left side and flexor on right side. Deep tendon reflexes are intact Sensory system: Intact Cerebellum: Intact Meningeal signs: No Musculoskeletal: No joint swelling or deformities noted. Skin:No rash or ulcers noted. Laboratory Tests Test 05/23/25 05:41 05/24/25 04:00 White Blood Count 5.0 X10'3 5.8 X10'3 Red Blood Count 4.42 X10'6 4.51 X10'6 Hemoglobin 14.0 g/dl 14.0 g/dl Hematocrit 40.5 % 41.3 % Mean Corpuscular Volume 91.8 FL 91.6 FL Mean Corpuscular Hemoglobin 31.7 PG 31.1 PG Mean Corpuscular Hemoglobin Concent 34.5 g/dL 33.9 g/dL Red Cell Distribution Width 15.5 % 15.6 % Platelet Count 167 X10'3 160 X10'3 Mean Platelet Volume 8.8 FL 9.1 FL Neutrophils (%) (Auto) 50.2 % 45.9 % Lymphocytes (%) (Auto) 34.5 % 40.2 % Monocytes (%) (Auto) 12.1 % 10.1 % Eosinophils (%) (Auto) 2.3 % 3.1 % Basophils (%) (Auto) 0.9 % 0.7 % Neutrophils # (Auto) 2.5 X10'3 2.7 X10'3 Lymphocytes # (Auto) 1.7 X10'3 2.3 X10'3 Monocytes # (Auto) 0.6 X10'3 0.6 X10'3 Eosinophils # (Auto) 0.1 X10'3 0.2 X10'3 Basophils # (Auto) 0.0 X10'3 0.0 X10'3 CBC Comment Sodium Level 140 MMOL/L 138 MMOL/L Potassium Level 2.9 MMOL/L 3.4 MMOL/L Chloride Level 106 MMOL/L 105 MMOL/L Carbon Dioxide Level 26.1 MMOL/L 26.0 MMOL/L Anion Gap 8 7 Blood Urea Nitrogen 8 MG/DL 2 MG/DL Creatinine 0.30 MG/DL 0.30 MG/DL Estimated GFR/1.73 m2 > 90 ML/MIN > 90 ML/MIN BUN/Creatinine Ratio 26.7 6.7 Glucose Level 72 MG/DL 56 MG/DL Calcium Level 7.6 MG/DL 7.7 MG/DL Magnesium Level 1.4 MG/DL 2.2 MG/DL Total Bilirubin 0.4 MG/DL 0.4 MG/DL Aspartate Amino Transf (AST/SGOT) 28 U/L 25 U/L Alanine Aminotransferase (ALT/SGPT) 7 U/L 10 U/L Alkaline Phosphatase 87 IU/L 86 IU/L Total Protein 5.2 G/DL 5.1 G/DL Albumin 2.1 G/DL 2.1 G/DL Globulin 3.1 G/DL 3.0 G/DL Albumin/Globulin Ratio 0.7 0.7 Prealbumin 11.1 MG/DL Chemistry Comments Advice on discharge - speech therapy evaluated, and recommended pureed diet. Please continue puree textures and thin liquids. - continue speech therapy evaluation at home, followed by PT services at home. - also home health has been ordered, please continue as per instructions from home health care nurse - in case of severe weight loss or failure to thrive or persistent symptoms of dysphagia even with pureed thick diet, please come back to the ED for G-tube placement as discussed. - call 911/go to the nearby ED if any emergencies *Problems/Diagnosis: (1) Failure to thrive in adult Status: Acute (2) Dysphagia Status: Acute (3) General weakness Status: Acute Total Time Spent on D/C: > 30 Minutes Date of Service: May 24, 2025 Billing Provider: MANJIT SMALL MD Common Visit Codes: 49933-XBR/OBS DISCH DAY >30min Problem Qualifiers (1) Dysphagia: Dysphagia type: unspecified Qualified Codes: R13.10 - Dysphagia, unspecified ROBERTO BRUMFIELD, RES May 24, 2025 15:48 MANJIT SMALL MD Jun 05, 2025 07:27
[2025-05-24] MEDS: POTASSIUM CHLORIDE 20 MEQ/15 ML oral solution PO ONE (16:12)
[2025-05-24] MEDS: acetaminophen 325mg/10.15ml oral unit dose solution PO PRN (16:13)
[2025-06-14] MEDS ORDERED: METO50TA16 GT (14:20)
[2025-06-14] MEDS ORDERED: GABA-530 GT (14:20)
== END 2025-05-24 17:59 | disposition home health service (06) | DRG 421 ==
LOC: ER 13:18 → ED HOLD 18:16 → ORTHO 4S 22:10 → UNDODISIN 05-24 17:53
PROVIDERS: ADMIT Family Medicine; ATTEND Family Medicine
DX: R62.7 Adult failure to thrive (principal); E44.0 Moderate protein-calorie malnutrition; R13.12 Dysphagia, oropharyngeal phase; E88.09 Other disorders of plasma-protein metabolism, not elsewhere classified; N39.0 Urinary tract infection, site not specified; I10 Essential (primary) hypertension; I25.10 Atherosclerotic heart disease of native coronary artery without angina pectoris; F17.210 Nicotine dependence, cigarettes, uncomplicated; E86.0 Dehydration; Z90.49 Acquired absence of other specified parts of digestive tract; I69.354 Hemiplegia and hemiparesis following cerebral infarction affecting left non-dominant side; I69.391 Dysphagia following cerebral infarction; Z95.5 Presence of coronary angioplasty implant and graft; Z68.24 Body mass index [BMI] 24.0-24.9, adult; I25.2 Old myocardial infarction; Z79.82 Long term (current) use of aspirin; Z99.3 Dependence on wheelchair
CPT/HCPCS: 36415; 71045; 80048; 80053; 81001; 81025; 83605; 83735; 84100; 84134; 84145; 85025; 87040; 87081; 87088; 92508; 92616; 93005; 93306; 96365; 97110; 97161; 97530; 99285; A6213; G0378; J0696; J2270; J3475; J3480; J7030; J7040

== ENCOUNTER 2025-06-07 10:45 | Inpatient (IN) | payer MEDICAID ==
[2025-06-07] VITALS (16 sets, daily range): BP systolic 80–170; BP diastolic 40–100; PULSE 65–119; RESP 14–20; TEMP 96.5–98.4; O2SAT 93–100
[~2025-06-07] VITALS: Ht 165.1 cm; Wt 70.2 kg
[~2025-06-07 10:45] MED LIST changes: -ASPI-500 PO; +BACL10TA2 GT; -CLOP75TA34 PO; +DOCU100C38 PO; +FLUT16SP2 BOTHNARES; +LACT1CAP26 PO; +LIDOcaine 2% Viscous 15ml cup ONE; +LORA10TA7 GT; -LOSA-415 PO; -NOR5T PO; +OMEP20CA15 GT; +VALS40TA11 PO; +simethicone 40mg/0.6ml oral drops 15ml ONE
[2025-06-07 11:29] LABS: MEAN PLATELET VOLUME 8.8 FL (7.4-10.4); RED CELL DISTRIBUTION WIDTH 15.5 % (11.5-14.5)
[2025-06-07 11:40] LABS: CREATININE 0.62 MG/DL (0.40-0.90); TOTAL CARBON DIOXIDE 29.1 MMOL/L (24-32); eCRCL 75 ML/MIN; eGFR > 90 ML/MIN
--- NOTE | 2025-06-07 11:46 | Physician Documentation ---
History of Present Illness ~ General Chief Complaint: See Chief Complaint Stated Complaint: DIFF SWALLOWING Time Seen by MD: 10:57 Primary Medical Doctor: DR ALON MCBRIDE History of Present Illness Initial Comments The patient is a 70-year-old woman with a history of cerebrovascular accident in October 2024 with chronic left-sided hemiparesis, coronary artery disease status post stent, and hypertension who was admitted for progressive dysphagia, poor oral intake, and acute deconditioning with failure to thrive. She was previously hospitalized at [facility] where an NG tube was placed temporarily and later removed after speech therapy documented improved swallowing. Since January 2025 she has had gradually worsening difficulty swallowing accompanied by pain radiating from the right post-auricular area into the jaw. This progressed to markedly reduced oral intake and significant weight loss; on admission she appeared malnourished with hypoalbuminemia (albumin 2.9 g/dL), consistent with moderate protein-calorie malnutrition. During the past hospitalization she was initially managed with IV fluids and nutritional consultation. Speech therapy performed bedside evaluations and initially recommended a clear liquid diet (05/22), then on 05/23 advanced her to a pureed diet with thin liquids; at that time she tolerated the pureed diet without overt aspiration events. Gastroenterology was consulted to discuss long- term feeding options (PEG) but the patient and her elected to attempt oral intake and defer feeding tube placement. Her functional baseline is wheelchair-bound because of chronic left hemiparesis. PT/OT were involved for strengthening and fall prevention. Echocardiogram during that admission showed LVEF 60% with mild concentric LVH, trivial valvular changes (mild aortic sclerosis, mild mitral annular calcification, trace MR), normal RV and no pericardial effusion. Over the past few weeks prior to this readmission the patient again developed worsening feeding intolerance: she stopped eating and, more recently, would vomit even sips of water. She returned to the hospital for re-evaluation and for placement of a feeding tube to restore nutrition and prevent further decline. Medication Reconciliation Allergies: Coded Allergies: Influenza Virus Vaccines (Unverified Allergy, Unknown, 06/07/25) Scheduled Atorvastatin Calcium* (Lipitor*), 1 TAB PO DAILY, (Reported) Baclofen (Baclofen), 1 TAB PO BID, (Reported) Docusate Sodium (Docusate Sodium), 1 CAP PO Q12H, (Reported) Fluticasone Propionate (Flonase), 2 SPRAYS BOTHNARES DAILY, (Reported) Lactobacillus Rhamnosus (Culturelle), 1 CAP PO DAILY Loratadine (Loratadine), 1 TAB PO DAILY, (Reported) Metoprolol Tartrate (Lopressor*), 1 TAB PO BID, (Reported) Omeprazole (Omeprazole), 1 CAP PO DAILY, (Reported) Valsartan (Valsartan), 1 TAB PO DAILY, (Reported) Past Medical History Past Medical History: Hypertension, Myocardial Infarction Other Past Medical History: 1. Failure to thrive / Acute deconditioning 2. Oropharyngeal Dysphagia secondary to prior stroke Chronic but worsening since January, likely secondary to sequelae of prior CVA 3. Urinary tract infection (UTI) 4. History of Cerebrovascular Accident with left hemiparesis 5. Coronary artery disease s/p stenting 6. Hypertension 7. Mild protein-calorie malnutrition / Hypoalbuminemia (albumin 2.9 g/dL) Moderate Malnutrition Patient History: Patient reports no known family medical history. Alcohol Use: None Drug Use: none Review of Systems ROS Constitutional: No fever, chills, dizziness, weight gain or loss Eyes: No pain, erythema, discharge, ENT: No sore throat, epistaxis, tinnitus Cardiovascular: No Shortness of breath. Chest pressure, chest discomfort, palpitations, syncope, lower extremity edema, paroxysmal nocturnal dyspnea Respiratory: No Shortness of breath and cough present, No hemoptysis Gastrointestinal: Reports reduced appetite, dysphagia; No nausea, vomiting, diarrhea, hematemesis Integumentary: No change in skin, hair, nails. No swelling, bruising, abrasions Neurologic: Reports, weakness, slurred speech, left sided weakness Psychiatric: No delusions, depression, loss of interest in normal activity or change in sleep pattern, hallucinations, suicidal ideations Endocrine: Reports fatigue, weakness, No polydipsia, polyuria, change in appetite, heat or cold intolerance, sweating, dry skin Hematological: No bleeding, petechiae, bruising Allergies: No asthma or urticaria Physical Exam Physical Exam Vital Signs: Temperature: 98.3, Source: Oral, Heart Rate: 105, Respiratory Rate: 18, BP: 127/79, Pulse Oximetry: 95, Weight: 61.600 Physical Exam Awake , alert, and oriented x4, resting comfortably in the bed HEENT: Atraumatic, normocephalic, anicteric sclera ; pale conjunctiva Neck: Trachea midline. Supple, full range of motion, no JVD Cardiac: Regular rhythm, regular rate with no murmurs all over the precordium. Respiratory: Equal breath sounds bilaterally, no tachypnea, no wheezing ,rub or rales, Chest wall is symmetric and without deformity. Gastrointestinal: Abdomen symmetric, non-distended, tenderness present over d eep palpation of the left hypochondriac and left lumbar region, normal bowel sounds x4 quadrant, normoactive, no hepatosplenomegaly Musculoskeletal: No pedal edema, no cyanosis Neurological: Mental status exam: alert and consciousness, slurred speech with antegrade memory deficits Kernig's and Brudzinski's signs: Negative - Cranial nerve test: Cranial nerves 4-12 intact - Motor system: Nutrition, Tone 3+, Power 4/5, no involuntary movements - Sensory system: Intact - Reflex testing: Biceps, triceps and knee reflexes 1+ - Cerebellar: Abnormal heel-yan test Skin: Warm and dry Progress Results/Orders Results/Orders Orders - EUN STARK Hospitalist (06/07/25 11:37) Fill Out Med Reconciliation (06/07/25 11:37) Magnesium Sulf-Water 2g/50ml (Magnesium (06/07/25 12:10) Potassium Cl 10meq/100ml Bag (Potassium (06/07/25 12:10) Electrocardiogram (06/07/25 ) Vital Signs 06/07/25 06/07/25 10:48 11:45 Temp 98.3 Pulse 105 105 Resp 18 21 B/P (MAP) 127/79 128/72 (90) Pulse Ox 95 98 O2 Flow Rate 0 Laboratory Tests Test 06/07/25 11:18 White Blood Count 4.3 L Red Blood Count 4.99 Hemoglobin 15.4 Hematocrit 45.1 H Mean Corpuscular Volume 90.3 Mean Corpuscular Hemoglobin 31.0 Mean Corpuscular Hemoglobin Concent 34.3 Red Cell Distribution Width 15.5 H Platelet Count 185 Mean Platelet Volume 8.8 Neutrophils (%) (Auto) 56.6 Lymphocytes (%) (Auto) 34.6 Monocytes (%) (Auto) 7.6 Eosinophils (%) (Auto) 0.4 Basophils (%) (Auto) 0.8 Neutrophils # (Auto) 2.5 Lymphocytes # (Auto) 1.5 Monocytes # (Auto) 0.3 Eosinophils # (Auto) 0.0 Basophils # (Auto) 0.0 CBC Comment Sodium Level 143 Potassium Level 2.4 *L Chloride Level 100 Carbon Dioxide Level 29.1 Anion Gap 14 Blood Urea Nitrogen 15 Creatinine 0.62 Estimated GFR/1.73 m2 > 90 BUN/Creatinine Ratio 24.2 H Glucose Level 86 Calcium Level 9.1 Total Bilirubin 1.1 H Aspartate Amino Transf (AST/SGOT) 31 Alanine Aminotransferase (ALT/SGPT) 13 Alkaline Phosphatase 114 Total Protein 6.9 Albumin 3.2 L Globulin 3.7 Albumin/Globulin Ratio 0.9 L Chemistry Comments Medical Decision Making Additional information obtaine: old records Findings Severe dysphagia with failure to thrive / moderate protein-calorie malnutrition 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 Prior temporary NGT at outside facility that was removed. Trial of pureed diet tolerated earlier but now patient has recurrent inability to take PO for 5 days with vomiting. Plan: Consulted GI and patinet is scheduled for PEG placement with GI, Dr Rodriguez today Consult Nutrition Speech therapy Consulted Baseline Labs: CBC and CMP Obtained Speech therapy to continue serial swallow assessments Educate patient and regarding tube care, signs of intolerance/aspiration, and plan for outpatient follow-up Dehydration / volume depletion Continue IV fluids Monitor input/output, daily weights, and BMP daily until stable. Reassess need for ongoing IV fluids once tube feeding established. Suspected UTI UA awaited No further antibiotics at this time. Monitor vitals, WBC, and clinical signs of infection. Re-obtain cultures only if signs/symptoms of infection recur Left hemiparesis / decreased functional mobility after prior CVA Baseline wheelchair user with limited mobility that contributed to deconditioning. Continue PT/OT inpatient rehabilitation Coordinate home PT/OT after discharge Cardiac history: HTN, CAD s/p stent outpatient regimen stable Echocardiogram shows LVEF 60% and no acute cardiac contraindications to enteral feeding or procedures. Vital signs stable during admission. Continue home cardiac medications: aspirin 81 mg daily, atorvastatin 80 mg daily, metoprolol tartrate 100 mg twice daily, valsartan 40 mg daily unless contraindicated by hemodynamics or other complications Disposition: GI for PEG placement Speech therapy and PT/OT Nutrition follow-up Differential Diagnosis Dysphagia Post CVA Departure Disposition: ADMITTED INPATIENT Admission Level of Care: Med/Surg with Tele Impression: Primary Impression: Dysphagia, post-stroke Additional Impression: Hypokalemia Condition: Guarded Referrals: NO PRIMARY CARE PROVIDER (PCP) Critical Care Note Total Time (mins): 35 Critical Care Note CRITICAL CARE TIME: [35] minutes Treatments/Evaluations: Close monitoring and treatment of unstable vital signs, cardiorespiratory, and neurologic status, while maintaining tight balance of fluid, respiratory, and cardiac interventions. This time includes discussing the case with the patient and the patients family. This time does not include all procedures stated elsewhere in this record. This time also includes reviewing old records, labs and radiological studies. This time includes examining and re- examining the patient. Additionally, this time also includes arranging care with admitting and consulting physicians. Additional Comment Seen with PA/BRANCH EXAMINER This is an attending supervisory note for the resident of record. I have personally participated in care of this patient, has been present during critical and/or leahy portions of the patient's service, participated in the evaluation, and provided major portion of medical decision-making, independently interpreted imaging and laboratory studies and participated in disposition of this patient. In brief this is a 70-year-old female with a known history of chronic dysphagia, got worse after a stroke in October, presents today with a request of G-tube because she is no longer able to eat adequately. Previously she had rejected the G-tube. Physical examination: GENERAL: Awake, alert, oriented, GCS 15, no apparent distress, non-toxic appearing, answers questions, follows commands appropriately. HEENT: Atraumatic, normocephalic, pupils equal, extraocular muscles intact Active gross movements, sclerae anicteric, mucus membranes moist, no stridor. NECK: Midline, no JVD CARDIOVASCULAR: Good skin perfusion without evidence of pallor, mottling. PULMONARY: Nonlabored, symmetric chest rise, no audible wheezing, no accessory muscle use, no respiratory distress, speaking in full sentences. GASTROINTESTINAL: Not distended. NEUROLOGIC: Lucid with normal mental status. Chronic left-sided facial droop. Flaccid paralysis left upper and lower extremity. Moves right-sided extremities with purpose. No truncal ataxia. Speech is fluid with a baseline dysarthria or aphasia, no focal deficits appreciated. EXTREMITIES: Acute deformities Skin: warm, dry PSYCHIATRIC: Normal affect, normal insight, normal concentration. Focused exam: Differential diagnosis includes but not limited to chronic dysphasia, need for G-tube, dehydration, electrolyte derangement. Hemodynamics reviewed. The patient is not febrile, persistently mildly tachycardic, no evidence of hypotension respiratory distress. CBC shows mild leukopenia, normal white count, normal platelets. Metabolic panel notable for critical potassium of 2.4. She is also dehydrated. Potassium magnesium repleted. The resident I record discussed placement of G-tube with the gastroenterology service. The patient will require admission for further management of her disease. Signature Scribe Signature: No Scribe Attestation: Tyrel Wilks IM Resident, PGY2 Date: Jun 07, 2025 Time: 12:08 This note accurately reflects clinical decisions, work performed by myself, DO BRISSA Velazquez GAURAV, RES Jun 07, 2025 11:46 EUN STARK DO Jun 07, 2025 12:08
--- NOTE | 2025-06-07 12:06 | CONSULTATION REPORT - RESIDENT ---
Consult Providers to CC Resident Creating Document: NII RODGERS CC: VISHAL NELSON MD History of Present Illness Reason for Admit\Complaint: Dysphagia History of Present Illness Patient is a 70 y/o female with history of recent hemorrhagic stroke with residual left hemiplegia, HTN, former smoker who was brought to the ED due to dysphagia. Patient report that she has been experiencing difficulty eating solids and liquids since her stroke. These symptoms improved transiently after she was treated for an UTI, therefore, no further interventions were performed at that time. Five days after discharge, patient started experiencing difficulty eating again along with persistent sore throat, regurgitation and diffuse abdominal pain, because of this, patient has not been able to eat for the past five days. In addition, she reports that her last bowel movement was about seven days ago. Patient has undergone two modified barium swallow tests which were unremarkable according to her . Gastroenterology consultation was requested by ED physician for PEG tube placement. Allergies: Coded Allergies: Influenza Virus Vaccines (Unverified Allergy, Unknown, 06/07/25) Home Medications Home Medications Active Culturelle (Lactobacillus Rhamnosus) 10 Billion Cell Capsule 1 Cap PO DAILY 30 Days Reported Flonase (Fluticasone Propionate) 16 Gm [place].susp 2 Sprays BOTHNARES DAILY 30 Days Valsartan 40 Mg Tablet 1 Tab PO DAILY 30 Days Omeprazole 20 Mg Capsule.dr 1 Cap PO DAILY 30 Days Docusate Sodium 100 Mg Capsule 1 Cap PO Q12H 7 Days Baclofen 10 Mg Tablet 1 Tab PO BID 30 Days Loratadine 10 Mg Tablet 1 Tab PO DAILY 30 Days Lipitor* (Atorvastatin Calcium) 80 Mg Tablet 1 Tab PO DAILY 30 Days Lopressor* (Metoprolol Tartrate) 100 Mg Tab 1 Tab PO BID Past Medical History Past Medical History Recent hemorrhagic stroke with residual left hemiplegia, HTN, former smoker Past Surgical History Surgical History Comment Cholecystectomy, 2023 Hysterectomy 2/2 endometriosis, 1991 Family History Family History: FH: colon cancer FATHER FH: gastric cancer FATHER Past Social History Social History Comment Former smoker, quit in October of 2024 Denies ETOH and recreational drugs Lives at home with ROS ROS All systems were reviewed except for pertinent positives mentioned in HPI Exam Vitals: Vital Signs Date Time Temp Pulse Resp B/P (MAP) Pulse Ox O2 Delivery O2 Flow Rate FiO2 06/07/25 11:45 105 21 128/72 (90) 98 0 06/07/25 10:48 98.3 General: General: frail, awake, alert oriented to place, time, and person HEENT: significant, pallor present, no icterus, moist mucous membranes Neck: No masses and tenderness Resp: Unlabored. Lungs clear to auscultation bilaterally. Chest: Normal expansion Cardiovascular: Regular Rate and rhythm, normal S1 and S2 without murmur, rub or gallop Abdomen: Soft and nontender, no organomegaly, no guarding and rigidity, bowel sounds present Neuro: Left hemiplegia, power of the muscles 4/5 bilateral upper and lower extremities. Cranial nerves intact Extremities: No cyanosis,clubbing or edema Skin: Warm and Dry. No lesions Psych: Normal affect Diagnostic Data Last Recorded Lab Results: 06/07/25 1118 06/07/25 1118 Additional Plan Gastroenterology consultation note: Assessment: Patient was recently hospitalized with similar symptoms; at that time, patient's dysphagia had improved, and therefore, PEG tube placement was deferred. Considering patient's worsening symptoms and inability to tolerate oral intake, a PEG tube placement is prudent. Risks and benefits of procedure including but not limited to bleeding, perforation, and site infection were discussed with the patient who understands and agrees to proceed. Of note, patient has a family history of colon cancer in her father, which was diagnosed at age 64. Patient had a single colonoscopy in 1979 with unknown results. Recommendations: - Keep patient NPO now - Start IV hydration - PEG tube placement today - Start Protonix po BID via PEG - Screening colonoscopy as outpatient Other comorbidities: Recent hemorrhagic stroke with left hemiplegia HTN Hypokalemia Management as per hospitalist team Nii Byrne MD Internal Medicine Resident, PGY-2 Date of Service: Jun 07, 2025 Billing Provider: VISHAL NELSON MD, LEONARDO LUIS Jun 07, 2025 12:06 VISHAL NELSON MD Jun 07, 2025 17:24
--- NOTE | 2025-06-07 12:18 | ELECTROCARDIOGRAPH REPORT ---
[facility] Test Date: 2025-06-07 Test Time: 12:16:22 Pat Name: SHANTAL TOWNSEND Department: [facility] Patient ID: [id number] Room: [place] [address] Gender: F [employer]rel Assembly Inspector: : 1955 Requested By: EUN STARK Order Number: [id number] Reading MD: Dr. Randall Maza Measurements Intervals Sun Rate: 104 P: 47 [place]: 152 QRS: 47 QRSD: 111 T: 74 QT: 360 QTc: 474 Interpretive Statements Sinus tachycardia Multiple ventricular premature complexes Inferior infarct, old Consider anterolateral infarct Electronically Signed On 06-08-2025 18:48:[address] Randall Maza Please click the below link to view image of tracing.
[2025-06-07] MEDS: normal saline 1000ml 1,000 ML IV ONE (12:31)
[2025-06-07] MEDS: potassium CL 10mEq/100ml bag 100 ML IV SCH (12:32)
[2025-06-07] MEDS: magnesium sulf-water 2g/50mL 50 ML IV ONE (12:40)
[2025-06-07] MEDS ORDERED: magnesium hydroxide 30ml (MOM) UD suspension PO PRN (13:20)
[2025-06-07] MEDS ORDERED: magnesium sulf-water 2g/50mL 50 ML IV PRN (13:20)
[2025-06-07] MEDS ORDERED: magnesium sulf-water 4G/100mL 100 ML IV PRN (13:20)
[2025-06-07] MEDS ORDERED: magnesium Cl slow-release 64mg tablet PO PRN (13:20)
[2025-06-07] MEDS ORDERED: mag hydrox/Alum hydrox/simeth 30ml oral suspension PO PRN (13:20)
[2025-06-07] MEDS: normal saline 1000ml 1,000 ML IV SCH (13:20)
[2025-06-07] MEDS ORDERED: potassium Cl 20 mEq SR tablet PO PRN ×2 (13:20)
[2025-06-07] MEDS: normal saline 500ml IV soln 500 ML IV ONE (13:25)
[2025-06-07 16:33] LABS: ISTAT ANION GAP 16 (8-12); ISTAT BUN 14 mg/dL (7-18); ISTAT CL 100 mmol/L (99-107); ISTAT CREATININE 0.5 mg/dL (0.6-1.1); ISTAT GLUCOSE 88 mg/dL (70-104); ISTAT HGB 15.3 g/dl (12.0-16.0); ISTAT Hct 45 %PCV (35-45); ISTAT IONIZED CALCIUM 1.14 mmol/L (1.03-1.32); ISTAT K 3.4 mmol/L (3.5-5.1); ISTAT NA 141 mmol/L (135-145); ISTAT TOTAL CO2 25 mmol/L (24-32); ISTAT eGFR > 90 ML/MIN; POC BUN/CREATININE RATIO 28.0 (6.6-38.0)
--- NOTE | 2025-06-07 16:33 | HISTORY AND PHYSICAL-Residence ---
History & Physical Providers to CC Resident Creating Document: MAURI SEXTON, RES ~ History of Present Illness Primary Medical Doctor: Rhea Reason for Admit\Complaint: Difficulty swallowing History of Present Illness The patient is a 70-year-old woman with a history of cerebrovascular accident in October 2024 with chronic left-sided hemiparesis, coronary artery disease status post stent, and hypertension who was admitted for progressive dysphagia, poor oral intake, and acute deconditioning with failure to thrive. She was previously hospitalized at [facility] where an NG tube was placed temporarily and later removed after speech therapy documented improved swallowing. Since January 2025 she has had gradually worsening difficulty swallowing accompanied by pain radiating from the right post-auricular area into the jaw. This progressed to markedly reduced oral intake and significant weight loss; on admission she appeared malnourished with hypoalbuminemia (albumin 2.9 g/dL), consistent with moderate protein-calorie malnutrition. Over the past few weeks prior to this readmission the patient again developed worsening feeding intolerance: she stopped eating and, more recently, would vomit even sips of water. She returned to the hospital for re-evaluation and for placement of a feeding tube to restore nutrition and prevent further decline. Allergies: Coded Allergies: Influenza Virus Vaccines (Unverified Allergy, Unknown, 06/07/25) Home Medications Home Medications Active Culturelle (Lactobacillus Rhamnosus) 10 Billion Cell Capsule 1 Cap PO DAILY 30 Days Reported Flonase (Fluticasone Propionate) 16 Gm [place].susp 2 Sprays BOTHNARES DAILY 30 Days Valsartan 40 Mg Tablet 1 Tab PO DAILY 30 Days Omeprazole 20 Mg Capsule.dr 1 Cap PO DAILY 30 Days Docusate Sodium 100 Mg Capsule 1 Cap PO Q12H 7 Days Baclofen 10 Mg Tablet 1 Tab PO BID 30 Days Loratadine 10 Mg Tablet 1 Tab PO DAILY 30 Days Lipitor* (Atorvastatin Calcium) 80 Mg Tablet 1 Tab PO DAILY 30 Days Lopressor* (Metoprolol Tartrate) 100 Mg Tab 1 Tab PO BID Past Medical History Past Medical History Hypertension Myocardial infarction Past Surgical History Surgical History Comment Cholecystectomy CAD with stent placement Family History Family History: FH: colon cancer FATHER FH: gastric cancer FATHER Past Social History Social History Comment Smokes 5 cigarettes a day Denied alcohol, drug intake Wheelchair-bound Smoking: Cigarettes, Less than 1 pack/day Alcohol Use: None Drug Use: None ROS ROS Constitutional: No fever, chills, dizziness, weight gain or loss Eyes: No pain, erythema, discharge, ENT: No sore throat, epistaxis, tinnitus Cardiovascular: No Shortness of breath. Chest pressure, chest discomfort, palpitations, syncope, lower extremity edema, paroxysmal nocturnal dyspnea Respiratory: No Shortness of breath and cough present, No hemoptysis Gastrointestinal: Reports reduced appetite, dysphagia; No nausea, vomiting, diarrhea, hematemesis Integumentary: No change in skin, hair, nails. No swelling, bruising, abrasions Neurologic: Reports, weakness, slurred speech, left sided weakness Psychiatric: No delusions, depression, loss of interest in normal activity or change in sleep pattern, hallucinations, suicidal ideations Endocrine: Reports fatigue, weakness, No polydipsia, polyuria, change in appetite, heat or cold intolerance, sweating, dry skin Hematological: No bleeding, petechiae, bruising Allergies: No asthma or urticaria Exam Vitals: Vital Signs Date Time Temp Pulse Resp B/P (MAP) Pulse Ox O2 Delivery O2 Flow Rate FiO2 06/07/25 16:04 105 06/07/25 15:35 98.4 20 140/88 (105) 97 06/07/25 13:20 Room Air 06/07/25 11:45 0 General: Awake , alert, and oriented x4, resting comfortably in the bed HEENT: Atraumatic, normocephalic, anicteric sclera ; pale conjunctiva Neck: Trachea midline. Supple, full range of motion, no JVD Cardiac: Regular rhythm, regular rate with no murmurs all over the precordium. Respiratory: Equal breath sounds bilaterally, no tachypnea, no wheezing ,rub or rales, Chest wall is symmetric and without deformity. Gastrointestinal: Abdomen symmetric, non-distended, tenderness present over deep palpation of the left hypochondriac and left lumbar region, normal bowel sounds x4 quadrant, normoactive, no hepatosplenomegaly Musculoskeletal: No pedal edema, no cyanosis Neurological: Mental status exam: alert and consciousness, slurred speech with antegrade memory deficits Kernig's and Brudzinski's signs: Negative - Cranial nerve test: Cranial nerves 4-12 intact - Motor system: Nutrition, Tone 3+, Power 4/5, no involuntary movements - Sensory system: Intact - Reflex testing: Biceps, triceps and knee reflexes 1+ - Cerebellar: Abnormal heel-yan test Skin: Warm and dry Diagnostic Data Last Recorded Lab Results: 06/07/25 1118 06/07/25 1118 Advance Care Planning Advanced Care plannin - 30 Minutes (Full code) Additional Plan Severe dysphagia with failure to thrive moderate protein-calorie malnutrition 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 Prior temporary NGT at outside facility that was removed. Trial of pureed diet tolerated earlier but now patient has recurrent inability to take PO for 5 days with vomiting. Plan: Consulted GI and kelly is scheduled for PEG placement with GI, Dr Rodriguez today Will Consult Nutrition Speech therapy Consulted Speech therapy to continue serial swallow assessments Dehydration / volume depletion Patient recording low blood pressures 1 L IV bolus NS given, on maintenance fluids NS 100 cc/hours Hypokalemia- K- 2.4 Patient on potassium replacement Left hemiparesis / decreased functional mobility after prior CVA Baseline wheelchair user with limited mobility that contributed to deconditioning. Continue PT/OT inpatient rehabilitation Coordinate home PT/OT after discharge Disposition: GI for PEG placement Mauri Sexton PGY-1 Date of Service: Jun 07, 2025 Billing Provider: SELVIN FRYE MD Common Visit Codes: [id number] INP/OBS CARE (HIGH) MAURI SEXTON, RES Jun 07, 2025 16:33 SELVIN FRYE MD Jun 09, 2025 17:01
[2025-06-07] MEDS ORDERED: propofol 10mg/ml 20ml vial IV ONE (16:37)
[2025-06-07] MEDS: docusate sod 100mg capsule PO SCH (20:00)
[2025-06-07] MEDS: K and/or MAG REPLACEMENT MC SCH (20:00)
[2025-06-07] MEDS: pantoprazole 40mg Tablet.DR PO SCH (21:31)
[2025-06-08] VITALS (7 sets, daily range): BP systolic 109–160; BP diastolic 54–83; PULSE 69–104; RESP 14–18; TEMP 96.9–98.2; O2SAT 94–99
[2025-06-08] MEDS: ondansetron/PF 4mg/2ml inj IV PRN (04:06)
--- NOTE | 2025-06-08 09:20 | PROGRESS NOTE- Residence ---
Progress Note - Resident Providers to CC Resident Creating Document: NII RODGERS CC: VISHAL NELSON MD ~ Antibiotic Timeout Antibiotic Ordered?: No Subjective Patient was seen and examined at bedside today. She reports she is not feeling great today. She reports pain in hypogastrium and right lower quadrant. She states he she has not had a bowel movement yet. She denies any pain at PEG tube site Objective Vital Signs Date Time Temp Pulse Resp B/P (MAP) Pulse Ox O2 Delivery O2 Flow Rate FiO2 06/08/25 06:00 97.2 103 17 151/81 (104) 96 Nasal Cannula 2.0 Result Diagram: 06/07/25 1118 06/07/25 1627 General: frail, awake, alert oriented to place, time, and person HEENT: significant, pallor present, no icterus, moist mucous membranes Neck: No masses and tenderness Resp: Unlabored. Lungs clear to auscultation bilaterally. Chest: Normal expansion Cardiovascular: Regular Rate and rhythm, normal S1 and S2 without murmur, rub or gallop Abdomen: PEG tube in place, no bleeding from site or surrounding erythema. Abdomen is slightly distended and tender in hypogastrium, no organomegaly, no guarding and rigidity, bowel sounds present Neuro: Left hemiplegia, power of the muscles 4/5 right upper and lower extremities. Cranial nerves intact Extremities: No cyanosis,clubbing or edema Skin: Warm and Dry. No lesions Psych: Normal affect Plan Plan Assessment: Patient tolerated PEG tube placement well with no complications. Laboratories are stable today. She is okay to start tube feeds. Recommendations: - Start tube feeds - continue IV hydration - continue Protonix po BID via PEG - Screening colonoscopy as outpatient Other comorbidities: Recent hemorrhagic stroke with left hemiplegia HTN Hypokalemia Management as per hospitalist team Nii Byrne MD Internal Medicine Resident, PGY-2 Date of Service: Jun 08, 2025 Billing Provider: VISHAL NELSON MD, LEONARDO LUIS Jun 08, 2025 09:20
[2025-06-08] MEDS: HYDROcodone/acetaminophen 5mg/325mg tablet PO PRN (09:26)
[2025-06-08 11:35] LABS: MEAN PLATELET VOLUME 8.4 FL (7.4-10.4); RED CELL DISTRIBUTION WIDTH 15.2 % (11.5-14.5)
[2025-06-08] MEDS: fluticasone nasal spray 16GM bottle NS SCH (11:54)
[2025-06-08 12:04] LABS: CREATININE 0.48 MG/DL (0.40-0.90); TOTAL CARBON DIOXIDE 27.7 MMOL/L (24-32); eCRCL 97 ML/MIN; eGFR > 90 ML/MIN
--- NOTE | 2025-06-08 12:13 | PROGRESS NOTE- Residence ---
Progress Note - Resident Providers to CC Resident Creating Document: MAURI SEXTON, RES ~ Antibiotic Timeout Antibiotic Ordered?: No Subjective Patient was seen and examined at bedside today. She reports she is not feeling great today. She reports pain in hypogastrium and right lower quadrant. She states he she has not had a bowel movement yet. She denies any pain at PEG tube site Objective Vital Signs Date Time Temp Pulse Resp B/P (MAP) Pulse Ox O2 Delivery O2 Flow Rate FiO2 06/08/25 11:00 97.0 104 17 160/83 (108) 99 Nasal Cannula 1.0 Result Diagram: 06/08/25 1110 06/08/25 1110 Awake , patient was tired looking and drowsy HEENT: Atraumatic, normocephalic, anicteric sclera ; pale conjunctiva Neck: Trachea midline. Supple, full range of motion, no JVD Cardiac: Regular rhythm, regular rate with no murmurs all over the precordium. Respiratory: Equal breath sounds bilaterally, no tachypnea, no wheezing ,rub or rales, Chest wall is symmetric and without deformity. Gastrointestinal: Abdomen symmetric, non-distended, tenderness present in the lower abdominal area, normal bowel sounds x4 quadrant, normoactive, no hepatosplenomegaly. Peg tube present. Area looks clean, no erythema, no drainage. Musculoskeletal: No pedal edema, no cyanosis Neurological: Mental status exam: alert and consciousness, slurred speech Skin: Warm and dry Plan Plan Assessment: Patient tolerated PEG tube placement well with no complications. Laboratories are stable today. She is okay to start tube feeds. Severe dysphagia with failure to thrive moderate protein-calorie malnutrition Patient stable Patient underwent PEG tube placement yesterday by Dr. Whitney. Nutrition consulted. We will start PEG tube feeding. Patient recording high blood pressures today. Started her home medication valsartan 40 mg Dehydration / volume depletion resolved Patient's blood pressure stabilized Patient on maintenance fluids. Hypokalemia K- 2.6 Patient on potassium replacement Left hemiparesis / decreased functional mobility after prior CVA Baseline wheelchair user with limited mobility that contributed to deconditioning. Continue PT/OT inpatient rehabilitation Disposition: Peg tube has been place. Feeding initiated. Monitor potassium level. On replacement Mauri Sexton PGY-1 Date of Service: Jun 08, 2025 Billing Provider: ESLVIN FRYE MD Common Visit Codes: [id number] INP/OBS CARE(HIGH) MAURI SEXTON, RES Jun 08, 2025 12:13 SELVIN FRYE MD Jun 09, 2025 17:01
[2025-06-08] MEDS ORDERED: POTASSIUM CHLORIDE 20 MEQ/15 ML oral solution PEG PRN ×2 (12:20→12:21)
[2025-06-08] MEDS ORDERED: mag hydrox/Alum hydrox/simeth 30ml oral suspension PEG PRN (12:22)
[2025-06-08] MEDS ORDERED: acetaminophen 325mg/10.15ml oral unit dose solution PEG PRN ×2 (12:25)
[2025-06-08] MEDS: potassium Cl 40MEQ/1/2NS 520ml 520 ML IV PRN (13:12)
[2025-06-08] MEDS: thiamine 100mg/ml 2ml inj. IV SCH (13:16)
[2025-06-08] MEDS: docusate sodium 100mg/10ml UD cup PEG SCH (22:01)
[2025-06-08] MEDS: lansoprazole 15mg solutab PEG SCH (22:03)
[2025-06-08] MEDS: HYDROcodone/acetaminophen 7.5MG/325MG per 15ml UD CUP PEG PRN (22:03)
[2025-06-09 05:41] LABS: MEAN PLATELET VOLUME 9.7 FL (7.4-10.4); RED CELL DISTRIBUTION WIDTH 16.1 % (11.5-14.5)
[2025-06-09 06:02] LABS: CREATININE 0.43 MG/DL (0.40-0.90); TOTAL CARBON DIOXIDE 27.7 MMOL/L (24-32); eCRCL 108 ML/MIN; eGFR > 90 ML/MIN
[2025-06-09 06:50] VITALS: BP 106/55; PULSE 92; RESP 16; TEMP 98.7; O2SAT 97
[2025-06-09 07:45] VITALS: BP 96/53; PULSE 68
[2025-06-09 10:02] VITALS: BP 98/58; PULSE 75; RESP 18; TEMP 97.4; O2SAT 97
--- NOTE | 2025-06-09 17:21 | PROGRESS NOTE- Residence ---
Progress Note - Resident Providers to CC Resident Creating Document: LUIS LOCKHARTHEMANT LUIS, RES ~ Antibiotic Timeout Antibiotic Ordered?: No Subjective The patient has been evaluated at bedside. She reports mild abdominal pain 2/10 in intensity. Well controlled with pain medication. Objective Vital Signs Date Time Temp Pulse Resp B/P (MAP) Pulse Ox O2 Delivery O2 Flow Rate FiO2 06/09/25 15:52 16 06/09/25 10:02 97.4 75 98/58 (71) 97 Nasal Cannula 1.5 Physical exam: General: Awake, alert, oriented. No acute distress. HEENT: Conjunctive are pink, sclerae clear, no icterus, pupil is equal in both sides, reactive to light, no ear discharge, no pharyngeal erythema or an edema. Neck: Supple, no adenopathy, thyromegaly. Trachea is midline. No JVD. Chest: Respiratory: Vesicular breath sounds. No ronchi, crepitus or wheezing. Resonance is normal upon percussion of all lung meza. Cardiovascular: S1-S2 regular sinus rhythm and, regular rate, no gallops, no rubs, no murmurs Abdomen: No visible distention, Bowel sounds present on auscultation, on palpation: soft, mild tenderness, no guarding, no rigidity. Presence of PEG tube in the left side of the abdomen, covered with clean dressing. No signs of infection or inflammation. Extremities: No obvious deformities, no pitting edema bilaterally, capillary refill intact, peripheral pulsations are intact on both sides Neurologic: Mental status: alert and conscious, oriented to place, person and time, preserved memory, normal speech. Cranial nerves I-XII: Normal. Except for cranial nerve 7, the patient is presenting diminished sensation in the left side of the face. Motor system: Preserved power, coordination, no evidenced involuntary movements, strength 5/5 in right upper and lower extremities, 1/5 in left upper and lower extremities. Sensory system: Preserved temperature, pain and vibration sensation in the right upper and lower extremities. Negative Babinski. Skin: Warm and dry. Result Diagram: 06/09/2545406/09/25454 Assessment Assessment 70-year-old female patient presented to the hospital due to dysphagia failure to thrive after and stroke she experienced on October 26, 2024 Plan Plan Severe dysphagia with failure to thrive, s/p peg tube placement on 06/08/2025 moderate protein-calorie malnutrition The patient has a stroke in October 26, 2024, with residual left upper and lower extremity weakness. After this episode the patient has been having difficulty with oral intake and experienced weight loss. Patient underwent PEG tube placement yesterday by cpas. Plan: Continue feedings through PEG tube. Pain control with [place] and morphine. Dehydration / volume depletion: Hypotension H/O hypertension: Current blood pressure 98/58. Holding blood pressure medication, metoprolol (100 mg b.i.d.) and losartan (25 mg daily). Continue NS at 100 mL/hour. Hypokalemia-resolved Potassium levels today 3.8. Continue replacement as per protocol. Residual Left hemiparesis / decreased functional mobility after prior CVA Baseline wheelchair user with limited mobility that contributed to deconditioning. Continue PT/OT inpatient rehabilitation Continue atorvastatin 80 mg daily. Code status: Full code DVT prophylaxis: SCDs Analgesia/sedation: Morphine/[place] Line/tube: PIV/PEG tube GI prophylaxis: Lansoprazole 30 mg b.i.d.. Nutrition: PEG tube feedings PT: Pending Prognosis: Guarded Disposition: Continue medical management. Pending physical therapy evaluation. Hemant Lockhart Internal Medicine Resident [facility] Date of Service: Jun 09, 2025 Billing Provider: SELVIN FRYE MD,HEMANT PEOPLES, RES Jun 09, 2025 17:21
[2025-06-09 18:00] VITALS: BP 118/64; PULSE 92; RESP 20; TEMP 98.2; O2SAT 95
[2025-06-09 20:00] VITALS: RESP 16; O2SAT 98
[2025-06-09 22:00] VITALS: BP_SYST 110; BP_SYST 111; BP_DIAS 68; BP_DIAS 70; PULSE 100; PULSE 110; RESP 18; TEMP 98.3; TEMP 98.7; O2SAT 94; O2SAT 96
[2025-06-09] MEDS: morphine 4 MG/ML inj SYRINge IV PRN (23:57)
[2025-06-10] VITALS (7 sets, daily range): BP systolic 94–131; BP diastolic 40–97; PULSE 112–122; RESP 16–22; TEMP 98.1–100; O2SAT 93–96
[2025-06-10] MEDS: metoclopramide 5 mg/ml inj IV PRN (03:50)
[2025-06-10 04:59] LABS: LEUKOCYTE ESTERASE ,URINE MODERATE (Neg); NITRITES, URINE NEGATIVE (Neg); OCCULT BLOOD,URINE TRACE-INTACT (Neg)
[2025-06-10 05:01] LABS: UA COLLECTION TYPE CLN CATCH MIDSTREAM
[2025-06-10 05:10] LABS: SQUAMOUS EPITHELIAL CELL,UR FEW /LPF (FEW)
[2025-06-10] MEDS: CefTRIAXone/D5W-Rocephin 1gm 50 ML IV SCH (06:04)
[2025-06-10 06:38] LABS: MEAN PLATELET VOLUME 10.0 FL (7.4-10.4); RED CELL DISTRIBUTION WIDTH 15.9 % (11.5-14.5)
[2025-06-10 06:49] LABS: CREATININE 0.41 MG/DL (0.40-0.90); TOTAL CARBON DIOXIDE 27.1 MMOL/L (24-32); eCRCL 113 ML/MIN; eGFR > 90 ML/MIN
[2025-06-10] MEDS ORDERED: METO50TA16 PEG (14:19)
--- NOTE | 2025-06-10 17:16 | PROGRESS NOTE- Residence ---
Progress Note - Resident Providers to CC Resident Creating Document: MAURI SEXTON RES ~ Antibiotic Timeout Antibiotic Ordered?: Yes Subjective The patient has been evaluated at bedside. She reports mild abdominal pain 2/10 in intensity at G-tube site Well controlled with pain medication. Objective Vital Signs Date Time Temp Pulse Resp B/P (MAP) Pulse Ox O2 Delivery O2 Flow Rate FiO2 06/10/25 14:20 112 06/10/25 10:00 98.1 16 131/86 (101) 96 Room Air 06/09/25 22:00 1.5 Result Diagram: 06/10/25 0604 06/10/25 06 Awake , patient was tired looking and drowsy HEENT: Atraumatic, normocephalic, anicteric sclera ; pale conjunctiva Neck: Trachea midline. Supple, full range of motion, no JVD Cardiac: Regular rhythm, regular rate with no murmurs all over the precordium. Respiratory: Equal breath sounds bilaterally, no tachypnea, no wheezing ,rub or rales, Chest wall is symmetric and without deformity. Gastrointestinal: Abdomen symmetric, non-distended, tenderness present in the lower abdominal area, normal bowel sounds x4 quadrant, normoactive, no hepatosplenomegaly. Peg tube present. Area looks clean, no erythema, no drainage. Musculoskeletal: No pedal edema, no cyanosis Neurological: Mental status exam: alert and consciousness, slurred speech Skin: Warm and dry. Patient has a rash around her anal area. Assessment Assessment 70-year-old female patient presented to the hospital due to dysphagia failure to thrive after and stroke she experienced on October 26, 2024 Plan Plan Severe dysphagia with failure to thrive, s/p peg tube placement on 06/08/2025 moderate protein-calorie malnutrition The patient has a stroke in October 26, 2024, with residual left upper and lower extremity weakness. After this episode the patient has been having difficulty with oral intake and experienced weight loss. Patients peg-tube feeding restarted this morning, was held last night due to complaints of nausea. Patient on Reglan. Currently patient tolerating G-tube feeding well, without any complaints of nausea or vomiting. We will continue to monitor her. Hypotension resolved Tachycardia H/O hypertension: Blood pressure in the normal range . Heart rate 112 Patient started on metoprolol tartrate 50 mg b.i.d. Continue NS at 100 mL/hour. UTI- Urine analysis positive for UTI Patient complains of burning micturition Started the patient on ceftriaxone. Hypokalemia Potassium levels today 3.1 Continue replacement as per protocol. Residual Left hemiparesis / decreased functional mobility after prior CVA Baseline wheelchair user with limited mobility that contributed to deconditioning. Continue PT/OT inpatient rehabilitation Continue atorvastatin 80 mg daily. Code status: Full code DVT prophylaxis: SCDs Analgesia/sedation: Morphine/[place] Line/tube: PIV/PEG tube GI prophylaxis: Lansoprazole 30 mg b.i.d.. Nutrition: PEG tube feedings PT: Pending Prognosis: Guarded Disposition: Patient was tachycardic, started on metoprolol. Peg tube feedings restarted. Patient's tube feedings will not be ready until Thursday. Continue medical management. Pending physical therapy evaluation. Resident MD attestation- Patient was seen, examined and discussed with the attending MD, Dr. Gallegos. Mauri Sexton PGY-1 Date of Service: Jun 10, 2025 Billing Provider: CODY GALLEGOS MD Common Visit Codes: [id number] INP/OBS CARE(HIGH) MAURI SEXTON, RES Jun 10, 2025 17:16 CODY GALLEGOS MD Jun 11, 2025 09:03
[2025-06-10] MEDS: magnesium hydroxide 30ml (MOM) UD suspension PEG PRN (17:59)
[2025-06-11 06:37] LABS: MEAN PLATELET VOLUME 10.2 FL (7.4-10.4); RED CELL DISTRIBUTION WIDTH 15.8 % (11.5-14.5)
[2025-06-11 06:51] VITALS: BP 148/75; PULSE 100; RESP 24; TEMP 98.4; O2SAT 93
[2025-06-11 07:13] LABS: CREATININE 0.27 MG/DL (0.40-0.90); TOTAL CARBON DIOXIDE 29.0 MMOL/L (24-32); eCRCL 172 ML/MIN; eGFR > 90 ML/MIN
[2025-06-11 08:00] VITALS: RESP 18
[2025-06-11 10:48] VITALS: BP 112/73; PULSE 89; RESP 21; TEMP 97.3; O2SAT 96
--- NOTE | 2025-06-11 16:11 | PROGRESS NOTE- Residence ---
Progress Note - Resident Providers to CC Resident Creating Document: MAURI SEXTON RES ~ Antibiotic Timeout Antibiotic Ordered?: Yes Subjective The patient has been evaluated at bedside. She reports mild abdominal pain 2/10 in intensity at G-tube site Well controlled with pain medication. Objective Vital Signs Date Time Temp Pulse Resp B/P (MAP) Pulse Ox O2 Delivery O2 Flow Rate FiO2 06/11/25 10:48 97.3 89 21 112/73 (86) 96 06/11/25 08:00 Room Air 06/09/25 22:00 1.5 Result Diagram: 06/11/25 0602 06/11/25 06 Awake , patient was tired looking and drowsy HEENT: Atraumatic, normocephalic, anicteric sclera ; pale conjunctiva Neck: Trachea midline. Supple, full range of motion, no JVD Cardiac: Regular rhythm, regular rate with no murmurs all over the precordium. Respiratory: Equal breath sounds bilaterally, no tachypnea, no wheezing ,rub or rales, Chest wall is symmetric and without deformity. Gastrointestinal: Abdomen symmetric, non-distended, tenderness present in the lower abdominal area, normal bowel sounds x4 quadrant, normoactive, no hepatosplenomegaly. Peg tube present. Area looks clean, no erythema, no drainage. Musculoskeletal: No pedal edema, no cyanosis Neurological: Mental status exam: alert and consciousness, slurred speech , decreased motor strength in upper and lower left extremities. Skin: Warm and dry. Patient has a rash around her anal area. Assessment Assessment 70-year-old female patient presented to the hospital due to dysphagia failure to thrive after and stroke she experienced on October 26, 2024 Plan Plan Severe dysphagia with failure to thrive, s/p peg tube placement on 06/08/2025 moderate protein-calorie malnutrition The patient had a stroke on October 26, 2024, with residual left upper and lower extremity weakness. After this episode the patient has been having difficulty with oral intake and experienced weight loss. Currently patient tolerating G-tube feeding well, without any complaints of nausea or vomiting. Hypotension resolved Sinus Tachycardia resolved H/O hypertension: Blood pressure in the normal range . Heart rate normalized -89 Patient on metoprolol tartrate 50 mg b.i.d. Continue NS at 100 mL/hour. UTI- Cystitis Vitals stable Urine analysis positive for UTI Patient complains of burning micturition Patient on ceftriaxone day 2. Hypokalemia resolved Potassium levels today 3.6 Patient on potassium replacement protocol We will continue to monitor potassium levels. Residual Left hemiparesis / decreased functional mobility after prior CVA Baseline wheelchair user with limited mobility that contributed to deconditioning. Continue PT/OT inpatient rehabilitation Continue atorvastatin 80 mg daily. Code status: Full code DVT prophylaxis: SCDs Analgesia/sedation: Morphine/[place] Line/tube: PIV/PEG tube GI prophylaxis: Lansoprazole 30 mg b.i.d.. Nutrition: PEG tube feedings Prognosis: Guarded Disposition: Patient ready for discharge, her home tube feeds have not been set up yet , disease case manager rn working on it. Patient has a rash around her anal area, being treated with triamcinolone topical cream. Resident MD attestation- Patient was seen, examined and discussed with the attending MD, Dr. Gallegos. Mauri Sexton PGY-1 Date of Service: Jun 11, 2025 Billing Provider: CODY GALLEGOS MD Common Visit Codes: [id number] INP/OBS CARE(HIGH) MAURI SEXTON, RES Jun 11, 2025 16:10 CODY GALLEGOS MD Jun 12, 2025 06:31
[2025-06-11 18:00] VITALS: BP 124/74; PULSE 101; RESP 18; TEMP 98.7; O2SAT 96
[2025-06-11 20:00] VITALS: RESP 18; O2SAT 96
[2025-06-11 22:00] VITALS: BP 149/67; PULSE 100; RESP 20; TEMP 97.7; O2SAT 94
[2025-06-11] MEDS: fluticasone nasal spray 16GM bottle NS STA (23:45)
[2025-06-12 06:09] LABS: MEAN PLATELET VOLUME 10.8 FL (7.4-10.4); RED CELL DISTRIBUTION WIDTH 16.0 % (11.5-14.5)
[2025-06-12 06:41] LABS: CREATININE 0.40 MG/DL (0.40-0.90); TOTAL CARBON DIOXIDE 28.9 MMOL/L (24-32); eCRCL 116 ML/MIN; eGFR > 90 ML/MIN
[2025-06-12 06:56] VITALS: BP 135/71; PULSE 110; RESP 18; TEMP 98.4; O2SAT 96
[2025-06-12 08:00] VITALS: RESP 18
[2025-06-12] MEDS: lactulose 20gm/30ml cup PEG ONE (12:58)
--- NOTE | 2025-06-12 17:25 | PROGRESS NOTE- Residence ---
Progress Note - Resident Providers to CC Resident Creating Document: MAURI SEXTON RES ~ Antibiotic Timeout Antibiotic Ordered?: Yes Subjective The patient has been evaluated at bedside. Patient has no new complaints,. Objective Vital Signs Date Time Temp Pulse Resp B/P (MAP) Pulse Ox O2 Delivery O2 Flow Rate FiO2 06/12/25 16:47 16 06/12/25 08:39 89 06/12/25 08:00 Room Air 06/12/25 06:56 98.4 135/71 (92) 96 06/09/25 22:00 1.5 Result Diagram: 06/12/2543406/12/25434 Awake , patient was tired looking and drowsy HEENT: Atraumatic, normocephalic, anicteric sclera ; pale conjunctiva Neck: Trachea midline. Supple, full range of motion, no JVD Cardiac: Regular rhythm, regular rate with no murmurs all over the precordium. Respiratory: Equal breath sounds bilaterally, no tachypnea, no wheezing ,rub or rales, Chest wall is symmetric and without deformity. Gastrointestinal: Abdomen symmetric, non-distended, tenderness present in the lower abdominal area, normal bowel sounds x4 quadrant, normoactive, no hepatosplenomegaly. Peg tube present. Area looks clean, no erythema, no drainage. Musculoskeletal: No pedal edema, no cyanosis Neurological: Mental status exam: alert and consciousness, slurred speech , decreased motor strength in upper and lower left extremities. Skin: Warm and dry. Patient has a rash around her anal area. Assessment Assessment 70-year-old female patient presented to the hospital due to dysphagia failure to thrive after and stroke she experienced on October 26, 2024 Plan Plan Severe dysphagia with failure to thrive, s/p peg tube placement on 06/08/2025 moderate protein-calorie malnutrition The patient had a stroke on October 26, 2024, with residual left upper and lower extremity weakness. After this episode the patient has been having difficulty with oral intake and experienced weight loss. Currently patient tolerating G-tube feeding well, without any complaints of nausea or vomiting. Awaiting home tube feedings preparations to be set up. Patient is medically stable to be discharged. Hypotension resolved Sinus Tachycardia resolved H/O hypertension: Blood pressure in the normal range . Heart rate normalized -89 Patient on metoprolol tartrate 50 mg b.i.d. Continue NS at 100 mL/hour. UTI- Cystitis Vitals stable Urine analysis positive for UTI Patient complains of burning micturition Patient on ceftriaxone day 3. Hypokalemia resolved Potassium levels today 3.8 Patient on potassium replacement protocol We will continue to monitor potassium levels. Residual Left hemiparesis / decreased functional mobility after prior CVA Baseline wheelchair user with limited mobility that contributed to deconditioning. Continue atorvastatin 80 mg daily. Code status: Full code DVT prophylaxis: SCDs Analgesia/sedation: Morphine/[place] Line/tube: PIV/PEG tube GI prophylaxis: Lansoprazole 30 mg b.i.d.. Nutrition: PEG tube feedings Prognosis: Guarded Disposition: Patient ready for discharge, her home tube feeds have not been set up yet , heel caser working on it. Patient most likely to be discharged tomorrow in the morning. Resident MD attestation- Patient was seen, examined and discussed with the attending MD, Dr. Gallegos. Mauri Sexton PGY-1 Date of Service: Jun 12, 2025 Billing Provider: CODY GALLEGOS MD Common Visit Codes: [id number] INP/OBS CARE(HIGH) MAURI SEXTON, RES Jun 12, 2025 17:24 CODY GALLEGOS MD Jun 13, 2025 06:40
[2025-06-12 18:00] VITALS: BP 106/48; PULSE 95; RESP 18; TEMP 97.6; O2SAT 95
[2025-06-12 20:00] VITALS: RESP 18; O2SAT 95
[2025-06-12 22:00] VITALS: BP 124/65; PULSE 71; RESP 15; TEMP 97.7; O2SAT 95
[2025-06-13 05:00] VITALS: BP 125/66; PULSE 106; RESP 18; TEMP 97.6; O2SAT 94
[2025-06-13 10:00] VITALS: BP 123/62; PULSE 94; RESP 20; TEMP 98.5; O2SAT 96
[2025-06-13] MEDS ORDERED: CEFD300C3 PO (12:43)
--- NOTE | 2025-06-13 15:46 | DISCHARGE SUMMARY-Residence ---
Discharge Summary Providers to Resident Creating Document: MAURI BAILEY RES ~ Discharge Summary Admission Diagnosis: difficulty swallowing Hospital Course DATE OF ADMISSION: 06/07/25 DATE OF DISCHARGE: 06/13/25 Discharge Diagnosis\Comment: Severe dysphagia with failure to thrive, s/p peg tube placement on 06/08/2025 moderate protein-calorie malnutrition Hypotension resolved Sinus Tachycardia resolved H/O hypertension UTI- Cystitis Hypokalemia resolved Residual Left hemiparesis / decreased functional mobility after prior CVA Operations\Procedures: G-tube placement Consultants: Gastroenterology Complications: None Condition on DC: Stable New Medications: Cefdinir* (Cefdinir*) 300 Mg Capsule 1 CAP PO Q12H for 3 Days, #6 CAP Metoprolol Tartrate (Metoprolol Tartrate) 50 Mg Tablet 50 MG PEG BID, #60 TAB Continued Medications: Atorvastatin Calcium* (Lipitor*) 80 Mg Tablet 1 TAB PO DAILY for 30 Days, #30 TAB Baclofen (Baclofen) 10 Mg Tablet 1 TAB PO BID for 30 Days, #90 TAB 0 Refills Docusate Sodium (Docusate Sodium) 100 Mg Capsule 1 CAP PO Q12H for constipation for 7 Days, #14 CAP 0 Refills Fluticasone Propionate (Flonase) 16 Gm [place].susp 2 SPRAYS BOTHNARES DAILY for 30 Days, #16 GM Lactobacillus Rhamnosus (Culturelle) 10 Billion Cell Capsule 1 CAP PO DAILY for 30 Days, #30 CAP 0 Refills Loratadine (Loratadine) 10 Mg Tablet 1 TAB PO DAILY for allergy symptoms for 30 Days, #30 TAB 0 Refills Omeprazole (Omeprazole) 20 Mg Capsule.dr 1 CAP PO DAILY for 30 Days, #30 CAP 0 Refills Discontinued Medications: Valsartan (Valsartan) 40 Mg Tablet 1 TAB PO DAILY for 30 Days, #30 TAB 0 Refills Discharge Summary: The patient is a 70-year-old woman with a history of cerebrovascular accident in October 2024 with chronic left-sided hemiparesis, coronary artery disease status post stent, and hypertension who was admitted for progressive dysphagia, poor oral intake, and acute deconditioning with failure to thrive. She was previously hospitalized at [facility] where an NG tube was placed temporarily and later removed after speech therapy documented improved swallowing. Since January 2025 she has had gradually worsening difficulty swallowing accompanied by pain radiating from the right post-auricular area into the jaw. This progressed to markedly reduced oral intake and significant weight loss; on admission she appeared malnourished with hypoalbuminemia (albumin 2.9 g/dL), consistent with moderate protein-calorie malnutrition. Over the past few weeks prior to this readmission the patient again developed worsening feeding intolerance: she stopped eating and, more recently, would vomit even sips of water. She returned to the hospital for re-evaluation and for placement of a feeding tube to restore nutrition and prevent further decline. Course during the hospital stay- Patient had severe dysphagia and did not pass swallow eval test. Gastroent erology was consulted and decided to place a G-tube for feedings. Patient labs showed severe hypokalemia, she was initiated on hypokalemia replacement protocol, potassium levels were back to normal. patient also recorded low blood pressures for which she was given 1 L NS bolus, blood pressure improved significantly was back to the normal range, Patient underwent G-tube placement by Dr. Hollingsworth. Patient did well with the G-tube feeding during the course of her hospital stay. Did not complain of any nausea or vomiting. Patient's home tube feedings were arranged and patient's wanted to take her back home. Patient was stable at the time of discharge. Vital Signs Date Time Temp Pulse Resp B/P (MAP) Pulse Ox O2 Delivery O2 Flow Rate FiO2 06/13/25 10:00 98.5 94 20 123/62 (82) 96 Room Air 06/09/25 22:00 1.5 Laboratory Tests Test 06/11/25 22:10 06/12/25 02:34 06/12/25 04:35 06/12/25 08:42 Glucometer 163 mg/dl 151 mg/dl 154 mg/dl White Blood Count 7.1 X10'3 Red Blood Count 3.87 X10'6 Hemoglobin 12.2 g/dl Hematocrit 35.6 % Mean Corpuscular Volume 91.9 FL Mean Corpuscular Hemoglobin 31.5 PG Mean Corpuscular Hemoglobin Concent 34.2 g/dL Red Cell Distribution Width 16.0 % Platelet Count 146 X10'3 Mean Platelet Volume 10.8 FL Neutrophils (%) (Auto) 66.2 % Lymphocytes (%) (Auto) 18.6 % Monocytes (%) (Auto) 12.9 % Eosinophils (%) (Auto) 1.8 % Basophils (%) (Auto) 0.5 % Neutrophils # (Auto) 4.7 X10'3 Lymphocytes # (Auto) 1.3 X10'3 Monocytes # (Auto) 0.9 X10'3 Eosinophils # (Auto) 0.1 X10'3 Basophils # (Auto) 0.0 X10'3 CBC Comment Sodium Level 140 MMOL/L Potassium Level 3.8 MMOL/L Chloride Level 107 MMOL/L Carbon Dioxide Level 28.9 MMOL/L Anion Gap 4 Blood Urea Nitrogen 9 MG/DL Creatinine 0.40 MG/DL Estimated GFR/1.73 m2 > 90 ML/MIN BUN/Creatinine Ratio 22.5 Glucose Level 138 MG/DL Calcium Level 7.2 MG/DL Total Bilirubin 0.2 MG/DL Aspartate Amino Transf (AST/SGOT) 14 U/L Alanine Aminotransferase (ALT/SGPT) 10 U/L Alkaline Phosphatase 134 IU/L Total Protein 4.6 G/DL Albumin 1.6 G/DL Globulin 3.0 G/DL Albumin/Globulin Ratio 0.5 Prealbumin 8.4 MG/DL Chemistry Comments Test 06/12/25 14:24 06/12/25 21:14 06/13/25 02:05 Glucometer 114 mg/dl 131 mg/dl 109 mg/dl Physical examination at the time of discharge- Awake HEENT: Atraumatic, normocephalic, anicteric sclera ; pale conjunctiva Neck: Trachea midline. Supple, full range of motion, no JVD Cardiac: Regular rhythm, regular rate with no murmurs all over the precordium. Respiratory: Equal breath sounds bilaterally, no tachypnea, no wheezing ,rub or rales, Chest wall is symmetric and without deformity. Gastrointestinal: Abdomen symmetric, non-distended, no tenderness present, normal bowel sounds x4 quadrant, normoactive, no hepatosplenomegaly. Peg tube present. Area looks clean, no erythema, no drainage. Musculoskeletal: No pedal edema, no cyanosis Neurological: Mental status exam: alert and consciousness, slurred speech. decreased motor strength in upper and lower left extremities. Skin: Warm and dry Discharge medications- New Medications: Cefdinir* 300 Mg Capsule Metoprolol Tartrate 50 Mg Tablet Continued Medications: Atorvastatin Calcium* (Lipitor*) 80 Mg Tablet Baclofen 10 Mg Tablet Docusate Sodium 100 Mg Capsule Fluticasone Propionate (Flonase) 16 Gm [place].susp Lactobacillus Rhamnosus (Culturelle) 10 Billion Cell Capsule Loratadine 10 Mg Tablet Omeprazole 20 Mg Capsule. Discontinued Medications: Valsartan 40 Mg Tablet Instructions by the doctor at the time discharge- STOPPED VALSARTAN BP WAS LOW, DECREASED METOPROLOL TO 50 BID. - Screening colonoscopy as outpatient WITH DR HOLLINGSWORTH. Appointment has been set up for colonoscopy on June. Please follow-up with her at her office. Tube feedings will be explained to you in detail by the window shade cloth sewer. *Problems/Diagnosis: (1) Dysphagia Status: Acute (2) Hypokalemia Status: Acute Total Time Spent on D/C: > 30 Minutes Date of Service: Jun 13, 2025 Billing Provider: CODY GALLEGOS MD Common Visit Codes: 32423-QBI/OBS DISCH DAY >30min MAURI BAILEY, RES Jun 13, 2025 15:32 CODY GALLEGOS MD Jun 14, 2025 06:44
[2025-06-14] MEDS ORDERED: METO50TA16 GT (14:20)
[2025-06-14] MEDS ORDERED: GABA-530 GT (14:20)
== END 2025-06-13 17:28 | disposition home or self-care (01) | DRG 421 ==
LOC: ER 10:45 → UNDOADMIN 12:15 → ED HOLD 12:15 → PCU 3S 15:00 → SUR 3N 06-08 15:24
PROVIDERS: ADMIT Internal Medicine; ATTEND Internal Medicine
PROC: 0DH63UZ Insertion of Feeding Device into Stomach, Percutaneous Approach (ICD-10-PCS; 2025-06-07)
PROC: 0DB68ZX Excision of Stomach, Via Natural or Artificial Opening Endoscopic, Diagnostic (ICD-10-PCS; principal; 2025-06-07 16:23)
DX: R62.7 Adult failure to thrive (principal); E44.0 Moderate protein-calorie malnutrition; I69.354 Hemiplegia and hemiparesis following cerebral infarction affecting left non-dominant side; I69.391 Dysphagia following cerebral infarction; R13.12 Dysphagia, oropharyngeal phase; E88.09 Other disorders of plasma-protein metabolism, not elsewhere classified; N30.90 Cystitis, unspecified without hematuria; I10 Essential (primary) hypertension; I25.10 Atherosclerotic heart disease of native coronary artery without angina pectoris; E87.6 Hypokalemia; I95.9 Hypotension, unspecified; R00.0 Tachycardia, unspecified; K29.70 Gastritis, unspecified, without bleeding; Z99.3 Dependence on wheelchair; I25.2 Old myocardial infarction; Z95.5 Presence of coronary angioplasty implant and graft; Z68.25 Body mass index [BMI] 25.0-25.9, adult; Z88.7 Allergy status to serum and vaccine
CPT/HCPCS: 36415; 43246; 80047; 80053; 81001; 82948; 83735; 84132; 84134; 85025; 87081; 92508; 92616; 93005; 96365; 99291; A4615; A4620; A6213; A6250; A6449; G0378; J0696; J2270; J2405; J2470; J2704; J2765; J3411; J3480; J7030; J7120